=== PATIENT | male | born 1970 | race Caucasian/White ===

== ENCOUNTER 2017-12-06 01:03 | Emergency (ER) | payer OTHER ==
[2017-12-06] MEDS ORDERED: Aspirin 81 mg CHEW TAB* 81 MG TAB.CHEW ONE (02:01)
[2017-12-06] MEDS ORDERED: Pantoprazole IV* 40 MG ONE (02:01)
[2017-12-06 04:52] LABS: ABS Basophils 0 10^3/ul (0-0.2); ABS Eosinophils 0.2 10^3/ul (0-0.6); ABS Lymphocytes 2.4 10^3/ul (1.0-4.8); ABS Monocytes 1.1 10^3/ul (0-0.8); ABS Neutrophils 5.3 10^3/ul (1.5-7.7); ABS Nucleated RBC 0 10^3/ul; Eosinophil % 2.3 % (0-6); Hematocrit 42 % (42-52); Hemoglobin 14.4 g/dl (14.0-18.0); Lymphocyte % 26.4 % (25-47); Mean Corpuscular HGB Conc 34 g/dl (31-36); Mean Corpuscular Hemoglobin 28 pg (27-31); Mean Corpuscular Volume 82 fL (80-94); Mean Platelet Volume 8.5 um3 (7.4-10.4); Nucleated Red Blood Cells % 0; Platelet Count 246 10^3/ul (150-450); Red Blood Count 5.12 10^6/ul (4.0-5.4); Red Cell Distribution Width 15 % (10.5-15); White Blood Count 9.1 10^3/ul (3.5-10.8)
[2017-12-06 04:53] LABS: EGFR Non-African American 50.6 (>60)
[2017-12-06 04:55] LABS: INR 0.84 (0.77-1.02)
--- NOTE | 2017-12-06 06:48 | ED ---
Mor Garcia Thomas, scribed for Maureen Drake MD on 12/06/17 at 0444 . HPI Chest Pain - HPI Summary HPI Summary: The patient is a 46 year old male complaining of mid-sternal chest pain that began at 00:45. The pain is rated 3/10. The pain did not radiate. He took ASA 81 x 3 prior to arrival. He took antacids as well to no relief of pain. The patient also complains of numbness and tingling to his left arm. The patient denies nausea, vomiting, diaphoresis, and shortness of breath. Past medical history includes HLD. - History of Current Complaint Chief Complaint: EDChestPainROMI Time Seen by Provider: 12/06/17 01:44 Hx Obtained From: Patient Onset/Duration: Started Hours Ago, Still Present Timing: Constant Current Severity: Moderate Pain Intensity: 6 Pain Scale Used: 0-10 Numeric Chest Pain Location: Discrete at: - mid sternal Alleviating Factor(s): Nothing Associated Signs and Symptoms: Positive: Negative - nausea, vomiting, diaphoresis, shortness of breath, Chest Pain, Other: - Numbness, tingling - Allergy/Home Medications Allergies/Adverse Reactions: Allergies Allergy/AdvReac Type Severity Reaction Status Date / Time iohexol Allergy Hives Verified 12/06/17 01:42 peaches, apricot, cherries Allergy Airway Uncoded 12/06/17 01:42 Obstruction PMH/Surg Hx/FS Hx/Imm Hx Endocrine/Hematology History: Denies: Hx Anticoagulant Therapy, Hx Diabetes, Hx Thyroid Disease Cardiovascular History: Reports: Hx Hypercholesterolemia Denies: Hx Hypertension, Hx Pacemaker/ICD Respiratory History: Denies: Hx Asthma, Hx Chronic Obstructive Pulmonary Disease (COPD) History: Denies: Hx Renal Disease Sensory History: Denies: Hx Hearing Aid Neurological History: Denies: Hx Dementia, Hx Seizures Psychiatric History: Denies: Hx Panic Disorder, Hx Substance Abuse - Surgical History Surgery Procedure, Year, and Place: testicular tortion,vasectomy, dental surgery - Immunization History Date of Tetanus Vaccine: unk Date of Influenza Vaccine: none Infectious Disease History: No Infectious Disease History: Denies: Hx Hepatitis, Hx Human Immunodeficiency Virus (HIV), Traveled Outside the [place] in Last 30 Days - Family History Known Family History: Negative: Blood Disorder - Social History Alcohol Use: Rare Substance Use Type: Reports: None Smoking Status (MU): Never Smoked Tobacco Review of Systems Negative: Skin Diaphoresis Positive: Cough. Negative: Shortness Of Breath Negative: Vomiting, Nausea Neurological: Other - Tingling Positive: Numbness All Other Systems Reviewed And Are Negative: Yes Physical Exam - Summary Physical Exam Summary: VITAL SIGNS: Reviewed. GENERAL: Patient is a well-developed and nourished male who is lying comfortable in the stretcher. Patient is not in any acute respiratory distress. HEAD AND FACE: No signs of trauma. No ecchymosis, hematomas or skull depressions. No sinus tenderness. EYES: PERRLA, EOMI x 2, No injected conjunctiva, no nystagmus. EARS: Hearing grossly intact. Ear canals and tympanic membranes are within normal limits. MOUTH: Oropharynx within normal limits. NECK: Supple, trachea is midline, no adenopathy, no JVD, no carotid bruit, no c- spine tenderness, neck with full ROM. CHEST: Symmetric, no tenderness at palpation LUNGS: Clear to auscultation bilaterally. No wheezing or crackles. CVS: Regular rate and rhythm, S1 and S2 present, no murmurs or gallops appreciated. ABDOMEN: Soft, non-tender. No signs of distention. No rebound no guarding, and no masses palpated. Bowel sounds are normal. EXTREMITIES: FROM in all major joints, no edema, no cyanosis or clubbing. NEURO: Alert and oriented x 3. No acute neurological deficits. Speech is normal and follows commands. SKIN: Dry and warm Triage Information Reviewed: Yes Vital Signs On Initial Exam: Initial Vitals Pulse Resp BP Pulse Ox 83 27 126/72 95 12/06/17 00:45 12/06/17 00:45 12/06/17 00:45 12/06/17 00:45 Vital Signs Reviewed: Yes Diagnostics - Vital Signs Vital Signs Temp Pulse Resp BP Pulse Ox 12/06/17 04:00 77 15 94 12/06/17 03:45 80 19 104/61 94 12/06/17 03:15 75 16 107/58 95 12/06/17 03:00 85 17 93 12/06/17 02:45 88 19 114/68 94 12/06/17 02:15 92 24 119/73 94 12/06/17 02:06 88 15 96 12/06/17 01:45 79 16 126/72 98 04/19/18 01:44 81 17 98 12/06/17 01:05 97.7 F 86 18 134/79 96 12/06/17 00:45 83 27 126/72 95 - Laboratory Result Diagrams: 12/06/17 01:50 12/06/17 01:50 Lab Statement: Any lab studies that have been ordered have been reviewed, and results considered in the medical decision making process. - EKG 01:01 Cardiac Rate: NL EKG Rhythm: Sinus Rhythm - at 823 BPM EKG Interpretation: Nonspecific ST T-wave changes. Re-Evaluation - Re-Evaluation First Eval Re-Evaluation Time: 06:42 Comment: He is chest pain free at this time. Chest Pain Course/Dx - Course Assessment/Plan: The patient is a 46 year old male complaining of mid-sternal chest pain and numbness to his left arm. Bloodwork and EKG were obtained. The patient will be discharged home to follow up with primary care in 1-2 days. The patient is diagnosis with atypical chest pain. I recommended a stress test as an outpatient as soon as possible. - Diagnoses Provider Diagnoses: Atypical chest pain Discharge - Sign-Out/Discharge Documenting (check all that apply): Discharge - Discharge Plan Condition: Stable Disposition: HOME Patient Education Materials: Chest Pain (ED) Referrals: Jo Castillo MD [Primary Care Provider] - 2 Weeks Additional Instructions: Follow up with your primary care physician in one to two days. I recommend a stress test as an outpatient as soon as possible. Return to the emergency department for any new or worsening symptoms. The documentation as recorded by the Mor story Thomas accurately reflects the service I personally performed and the decisions made by , Maureen Drake MD.
[2017-12-06 06:57] VITALS: BP 121/66
--- NOTE | 2017-12-06 08:04 | RAD ---
HISTORY: Midsternal chest pain COMPARISONS: October 15, 2011 VIEWS: 1: frontal portable view of the chest at 2:55 AM FINDINGS: LINES AND TUBES: None. CARDIOMEDIASTINAL SILHOUETTE: The cardiomediastinal silhouette is normal for portable technique. PLEURA: The costophrenic angles are sharp. No pleural abnormalities are noted. LUNG PARENCHYMA: The lungs are clear. ABDOMEN: The upper abdomen is clear. There is no subphrenic gas. BONES AND SOFT TISSUES: No bone or soft tissue abnormalities are noted. IMPRESSION: NO ACTIVE CARDIOPULMONARY DISEASE.
== END 2017-12-06 06:58 | disposition home or self-care (01) ==
LOC: ED 01:03
DX: R07.89 Other chest pain (principal)
CPT/HCPCS: 36415; 71045; 80053; 82150; 82550; 83690; 83735; 84484; 85025; 85610; 85730; 99283; A9270-GY

== ENCOUNTER → 2019-03-20 | Day surgery (SDC) | payer OTHER ==
[~2019-03-20] MED LIST: ACETAMINOPHEN PO PRN; ASPIRIN 81 MG PO SCH; Aspirin 81 mg CHEW TAB* 81 MG TAB.CHEW ONE; Atorvastatin* 80 MG TAB PO SCH; Azelastine 0.15% NASAL(NF) 30 ML BTL BOTH NARES PRN; BUTALB PO PRN; CAFFEINE PO PRN; CHOLECALCIFEROL PO SCH; Cetirizine* 10 MG TAB PO PRN; Clobetasol 0.05% OINT* 30 GM TUBE TOPICAL PRN; Diazepam TAB(*) 5 MG ONE; Fluticasone NASAL SPRAY 50MCG* 16 gm SPRAY BTL BOTH NARES SCH; Heparin 2 UNITS/ML IVPREMIX* 3,000 UNIT/1,500 ML BAG IV ONE; Heparin(*) 1000 UNIT/ML 10 ML VIAL CATH LAB IV ONE; IBUPROFEN PO PRN; Iohexol 350 (CONTRAST) 200 ML MDV IV ONE; Ketoconazole 2 % CREAM (NF) 30 GM TUBE TOPICAL SCH; Lidocaine 1% INJ* 10 MG/ML 30 ML SDV ONE; MAGNESIUM OXIDE 400 MG PO SCH; Metoprolol Succinate XL TAB* 25 MG PO SCH; Midazolam* 1 MG/ML 5 ML VIAL (5 MG) ONE; Montelukast Sodium TAB* 10 MG PO SCH; NS 0.9% 1000 ML** 1,000 ML IV SCH; Nitroglycerin TAB 0.4 MG* 0.4 MG TAB SL PRN; OMEGA-3 FATTY ACIDS (NF) 1,000 MG CAP PO SCH; Ranitidine TAB (NF) 150 MG TAB PO SCH; Riboflavin (B2) (NF) 100 MG TAB PO SCH; VERAPAMIL 2.5 MG/ML 2 ML VIAL ** 5 mg/2 ml ONE; [UNRECOGNIZED DRUG - OTHER] PO PRN; diPHENhydraMINE PO* 25 MG ONE; fentaNYL* 50 MCG/ML 2 ML VIAL (100 MCG VIAL) ONE; nitroGLYCERIN DRIP* 25,000 MCG/250 ML BTL ONE
[2019-03-20 11:44] LABS: ABS Lymphocytes 0.6 10^3/ul (1.0-4.8); ABS Monocytes 0.1 10^3/ul (0-0.8); ABS Neutrophils 7.4 10^3/ul (1.5-7.7); Eosinophil % 0.1 %; Hematocrit 46 % (42-52); Hemoglobin 15.8 g/dL (14.0-18.0); Lymphocyte % 7.7 %; Mean Corpuscular HGB Conc 35 g/dL (31-36); Mean Corpuscular Hemoglobin 29 pg (27-31); Mean Corpuscular Volume 83 fL (80-94); Mean Platelet Volume 8.4 fL (7.4-10.4); Platelet Count 266 10^3/uL (150-450); Red Blood Count 5.53 10^6 /uL (4.18-5.48); Red Cell Distribution Width 14 % (10-15); White Blood Count 8.1 10^3/uL (3.5-10.8)
[2019-03-20 11:54] LABS: BUN/Creatinine Ratio 23.5 (8-20); EGFR African American 94.7 (>60); EGFR Non-African American 78.3 (>60)
[2019-03-20 12:02] LABS: Potassium 4.7 mmol/L (3.5-5.0)
[2019-03-20 12:06] LABS: Activated Partial Thrombo Time 33.7 seconds (26.0-38.0); INR 0.94 (0.82-1.09)
--- NOTE | 2019-03-20 14:15 | CATH ---
"*[facility]* [place] [address] Main: [phone] [email or web address] Cardiac Catheterization Patient: Cain Vázquez : 1970 Study Date: 03/20/2019 Age: 48 Gender: M HR: Height: 67 in /170.2 cm BSA: 2.07 m^2 Weight: 194.9 lb /88.6 kg BMI: 30.6 kg/m^2 Hospitality Internship: Mraek Costa MD Ordering Physician: Marek Costa MD Referring Physician: Lexa Rubalcava MD - Left coronary angiography. - Right coronary angiography. Summary: Ramus intermedius: Ostial lesion: There is a 35% stenosis. Recommendations: No significant coronary artery disease seen. This information was shared with Dr. Rubalcava, referring cinnamon grinder.He will be seeing the patient in follow up for on going cardiac management. The patient will be seen next week for a wound checvk by Dr. Singletary. History: Stable angina. Functional status: CCS class I (angina only with strenuous or prolonged activity). Risk factors: Hypertension. Dyslipidemia. Medications: The patient received antianginal therapy in the last two weeks, including: beta blockers and calcium channel blockers. Labs, prior tests, procedures, and surgery: Stress myocardial perfusion imaging. Abnormal. Low risk of ischemia. Blood tests: International normalized ratio (INR) . Serum potassium (K) of 4.7 mEq/l. Serum sodium (Na) of 134 mEq/l. Serum creatinine (current admission) of 1.02 mg/dl. Blood urea nitrogen of 24 mg/dl. Glucose of 162 mg/dl. Platelet count of 266 th/ul. White blood cell count (WBC) of 0.01 th/ul. Red blood cell count (RBC) of 5530 th/ul. Hematocrit of 46 %. Hemoglobin (pre-procedure) of 15.8 g/dl. Study data: Study status: Cardiac cath: elective. Location: Catheterization laboratory. Consent: The risks, benefits, and alternatives to the procedure were explained to the patient and/or their healthcare teleservices representative and written informed consent was obtained. All available pre-procedure labs were reviewed. Height: 170.2 cm. 67 in. Weight: 88.6 kg. 194.9 lb. Body surface area: 2.07 m^2. Body mass index: 30.6 kg/m^2. Procedure: 1. Initial setup. The patient was brought to the laboratory. Surface ECG leads, blood pressure measurements, and pulse oximetric signals were monitored. A baseline seven lead ECG was recorded. A time out was observed per protocol. 2. Skin preparation. The planned puncture sites were prepped and draped in the usual sterile manner. 3. Local anesthesia. 1% lidocaine was administered. 4. Supplemental oxygen. Oxygen, 2 L/min was administered throughout the procedure. 5. Local anesthesia. 1% lidocaine (2 ml) was administered. 6. Right radial artery access. A 6F [place] Slender sheath was advanced into the vessel. 7. Selective left coronary angiography. A 5F TIG 4.0 catheter was advanced into the left coronary vessel ostium under fluoroscopic guidance. Contrast was injected. Images were obtained in multiple projections. 8. Selective right coronary angiography. A 5F FR 4.0 Impulse catheter was advanced into the right coronary vessel ostium under fluoroscopic guidance. Contrast was injected. Images were obtained in multiple projections. 9. Local anesthesia. 1% lidocaine (1 ml) was administered. 10. Right radial artery hemostasis. Vessel closure was achieved with a Regular Vasc Band device. Hemostasis was successfully obtained. Study completion: Minimal estimated blood loss. All catheters inserted during the procedure were removed. There were no apparent complications. Administered medications: Aspirin, 81mg, PO. (Radial) Verapamil, 3mg, intra-arterially. (Radial) Heparin, 4,000units, intra-arterially. VERSED (Midazolam), 0.5mg, IV. Fentanyl, 12.5mcg, IV. (Radial) Nitroglycerin, for a total dose of 600mcg, intra-arterially. NaCl 0.9% , infusion , at a rate of 100 ml/hr. NaCl 0.9% , 250 ml , bolus. NaCl 0.9% , infusion , at a rate of 150 ml/hr. Contrast: Omnipaque 350 60 ml (total dose). Omnipaque 350 140 ml (wasted). Radiation: Fluoroscopy dose: 95.6 cGy. Discharge: The patient tolerated the procedure well and was discharged from the lab in stable condition. Findings Coronary arteries: The coronary circulation is left dominant. The left main bifurcates normally into the LAD and circumflex. The left anterior descending gives rise to 2 diagonals. The first diagonal branch parallels the left anterior descending coronary and bifurcates suppyling the proximal to mid anterolateral wall. The left circumflex gives rise to 3 obtuse marginals, 1 posterolateral, and the posterior descending artery. The right coronary gives rise to 3 RV marginals. Left main: Normal, no significant disease. LAD: Normal, no significant disease. Ramus intermedius: Ostial lesion: There is a 35% stenosis. Left circumflex: Normal, no sigificant disease. Left dominant circulation. Right coronary: Normal, no significant disease. Hemodynamics: + + + |Stage description |Condition 1 -| + + + |Arterial pressure s/d (m)|106/67 (84) | + + + Prepared and electronically signed by Marek Costa MD 03/20/2019 14:15"
[2019-03-20 15:29] VITALS: BP 108/68
== END | disposition home or self-care (01) ==
LOC: CHICATH 10:28
PROVIDERS: ATTEND Internal Medicine Cardiovascular Disease
DX: I25.119 Atherosclerotic heart disease of native coronary artery with unspecified angina pectoris (principal); E78.00 Pure hypercholesterolemia, unspecified; Z73.3 Stress, not elsewhere classified; G47.33 Obstructive sleep apnea (adult) (pediatric); G43.909 Migraine, unspecified, not intractable, without status migrainosus; E78.5 Hyperlipidemia, unspecified; R09.89 Other specified symptoms and signs involving the circulatory and respiratory systems; J30.2 Other seasonal allergic rhinitis; K21.9 Gastro-esophageal reflux disease without esophagitis; I36.1 Nonrheumatic tricuspid (valve) insufficiency
CPT/HCPCS: 36415; 80048; 85025; 85610; 85730; 86850; 86900; 86901; 93454; A9270-GY; J1644; J2250; J3010

== ENCOUNTER 2019-10-28 14:07 | Emergency (ER) | payer OTHER ==
--- OUTSIDE RECORDS SUMMARY | 2019-10-28 14:13 | XMS REPORT | Continuity of Care Document ---
:1970 External Reference #:[id number] Author Name Carlos Dickerson N.P. (transmitted by agent of provider Pippa Kelly) Address [address], [place] [address] Care Team Providers Name Role Phone Daphnie Khan MD - Internal Care Team Information Freelance Operator Medicine Regi Gonzalez MD - Family Care Team Information Freelance Operator Medicine Ann Kaiser M.D. - Single Care Team Information Freelance Operator [phone] Specialty Addy Lee LCSW - Clinical Care Team Information Freelance Operator [phone] Problems Active Problems Provider Date Coronary atherosclerosis Jo Castillo M.D. Onset: 01/25/2019 Hyperlipidemia Jo Castillo M.D. Onset: 08/02/2010 Strain of rotator cuff capsule Андрей Mccarty M.D. Onset: 01/25/2015 Disorder of bursa of shoulder region Андрей Mccarty M.D. Onset: 02/09/2015 Adhesive capsulitis of shoulder Андрей Mccarty M.D. Onset: 06/07/2015 Seasonal allergic rhinitis Shabbir Pozo NP Onset: 12/11/2016 Chronic intractable migraine without Reinaldo Meyer M.D. Onset: 11/05/2017 aura Angina pectoris Neftali Singletary MD, [facility], Onset: 03/26/2019 [facility] Social History Type Date Description Comments Sex Unknown Tobacco Use Start: Unknown Never Smoked Cigarettes ETOH Use Currently consumes 1-2 drinks/week alcohol Tobacco Use Start: Unknown Patient has never smoked Recreational Drug Use Denies Drug Use Smoking Status Reviewed: 09/04/19 Patient has never smoked Exercise Type/Frequency Exercises sporadically Allergies, Adverse Reactions, Alerts Active Allergies Reaction Severity Comments Date Contrast Dye 01/06/2016 Clindamycin Mild n/v 12/11/2016 Dairy 03/21/2018 Nitro-Dur 2018 Nitrates: headaches, migr Moderate 04/03/2019 Medications Active Medications SIG Qnty Indications Ordering Provider Date Pantoprazole Sodium 1 by mouth every 30tabs K21.9 Lexa Gallardo 04/03/2019 day Jacob Rubalcava 40mg Tablets Amlodipine Besylate 1 by mouth every 30tabs I20.8 Lexa Gallardo 04/03/2019 day Jacob Rubalcava 2.5mg Tablets Nitrostat dissolve 1 30tabs Lexa Gallardo 08/07/2018 0.4mg tablet under the Jacob Rubalcava Tablets Sub tongue every 5 minutes up to 3 doses as needed replace every 12 months Butalbital/Acetamino take 1-2 every 8 14caps G43.719 Carlos Dickerson, 09/2017 phen/Caffeine hours for N.P. migraine 50-300-40mg Capsules headaches Riboflavin 4 by mouth each 120caps G43.719 Reinaldo Meyer, 11/05/2017 100mg day M.D. Capsules Zyrtec Allergy 1 by mouth every 30tabs J30.2 Shabbir Pozo NP 12/11/2016 10mg day for the next Tablets 3-4 weeks, then as needed Montelukast Sodium Take 1 Tablet 90tabs J30.2 Jo Castillo, 12/11/2016 Daily M.DMari 10mg Tablets Atorvastatin Calcium take 2 tablets 180tabs E78.5 Lexa Gallardo 04/14/2016 by mouth every Jacob Rubalcava 40mg Tablets day Fish Oil 2 po qd Jo Castillo, 03/06/2011 1000mg M.D. Capsules Vitamin D-3 2 po qd Jo Castillo, 03/06/2011 1000Unit M.D. Tablets Aspirin Childrens 1 tab daily Jo Castillo, 03/06/2011 M.D. 81mg Chewtabs Advil prn 100caps Unknown 200mg Capsules Clobetasol apply once a day 30units Unknown Propionate as needed 0.05% Gel Ketoconazole topical, as Lesly Resendiz NP 2% needed Shampoo Magnesium 1 by mouth once Unknown 400mg a day Capsules Azelastine HCL spray two sprays Unknown (Nasal) in each nostril ? Solution twice a day as needed Fluticasone prn as needed Unknown Zantac 150 Maximum take one pill as Unknown Strength needed 150mg Tablets Metoprolol Succinate 1/2 by mouth Unknown ER every day 25mg Tablets ER 24HR Medications Administered in Office Medication SIG Qnty Indications Ordering Provider Date Depomedrol 80MG Андрей Mccarty M.D. 06/28/2015 Injection Depomedrol 80MG Андрей Mccarty M.D. 02/09/2015 Injection Immunizations CPT Code Status Date Vaccine Lot # [id number] Given 06/27/2019 Influenza Virus Vaccine, Quadrivalent (Cciiv4), [id number] Derived From Cell 40750 Given 05/30/2018 Influenza Virus Vaccine, Quadrivalent, Split, [id number] Preservative Free 80760 Given 12/18/2014 Measles Mumps And Rubella MMR [id number] Given 01/30/2013 Tdap - Tetanus/Diptheria/Acellular Pertussis [id number] Given 06/08/2011 Influenza Virus 3Yrs & Over [id number] Vital Signs Date Vital Result Comment 09/04/2019 2:10pm Height 66.5 inches 5'6.50" Weight 195.00 lb Heart Rate 79 /min BP Systolic 110 mmHg BP Diastolic 90 mmHg BMI (Body Mass Index) 31.0 kg/m2 08/27/2019 4:34pm Height 66.5 inches 5'6.50" Weight 197.12 lb Heart Rate 94 /min BP Systolic 110 mmHg BP Diastolic 56 mmHg Body Temperature 96.8 F O2 % BldC Oximetry 95 % BMI (Body Mass Index) 31.3 kg/m2 Results Test Acquired Date Facility Test Result H/L Range Note Lipid Panel - 06/24/2019 [facility] Creatine 65 U/L Normal 10- [address] Kinase(CK) [place] [address] [phone] Comp Metabolic 06/24/2019 [facility] Sodium 137 mmol/L Normal 135-[address] [place] [address] [phone] Potassium 4.5 mmol/L Normal 3.5-5.0 Chloride 103 mmol/L Normal 101-111 Co2 Carbon Dioxide 30 mmol/L Normal 22-32 Anion Gap 4 mmol/L Normal 2-11 Glucose 103 mg/dL High 70-100 Blood Urea Nitrogen 22 mg/dL Normal 6-24 Creatinine 1.10 mg/dL Normal 0.67-1.17 BUN/Creatinine Ratio 20.0 Normal 8-20 Calcium 9.7 mg/dL Normal 8.6-10.3 Total Protein 7.1 g/dL Normal 6.4-8.9 Albumin 4.5 g/dL Normal 3.2-5.2 Globulin 2.6 g/dL Normal 2-4 Albumin/Globulin Ratio 1.7 Normal 1-3 Total Bilirubin 0.90 mg/dL Normal 0.2-1.0 Alkaline Phosphatase 105 U/L High 34-104 Alt 41 U/L Normal 7-52 Ast 16 U/L Normal 13-39 Egfr Non- 71.8 >60 Egfr 86.8 >60 1 Lipid Profile 06/24/2019 [facility] Triglycerides 167 mg/dL 2 (Trig/Chol/HDL) [address] [place] [address] [phone] Cholesterol 178 mg/dL 3 HDL Cholesterol 42.3 mg/dL 4 LDL Cholesterol 102 mg/dL 5 CBC Auto 03/20/2019 [facility] White Blood 8.1 10^3/uL Normal 3.5-10.[address] [place] [address] [phone] Red Blood Count 5.53 10^6/uL High 4.18-5.48 Hemoglobin 15.8 g/dL Normal 14.0-18.0 Hematocrit 46 % Normal 42-52 Mean Corpuscular Volume 83 fL Normal 80-94 Mean Corpuscular Hemoglobin 29 pg Normal 27-31 Mean Corpuscular HGB Conc 35 g/dL Normal 31-36 Red Cell Distribution Width 14 % Normal 10-15 Platelet Count 266 10^3/uL Normal 150-450 Mean Platelet Volume 8.4 fL Normal 7.4-10.4 Abs Neutrophils 7.4 10^3/uL Normal 1.5-7.7 Abs Lymphocytes 0.6 10^3/uL Low 1.0-4.8 Abs Monocytes 0.1 10^3/uL Normal 0-0.8 Abs Eosinophils 0.0 10^3/uL Normal 0-0.6 Abs Basophils 0.0 10^3/uL Normal 0-0.2 Abs Nucleated RBC 0.0 10^3/uL Granulocyte % 90.8 % Lymphocyte % 7.7 % Monocyte % 1.3 % Eosinophil % 0.1 % Basophil % 0.1 % Nucleated Red Blood Cells % 0.0 Basic Metabolic 03/20/2019 [facility] Sodium 134 mmol/L Low 135-145 Panel [address] [place], [place] [id number] [phone] Chloride 104 mmol/L Normal 101-111 Co2 Carbon Dioxide 22 mmol/L Normal 22-32 Glucose 162 mg/dL High 70-100 Blood Urea Nitrogen 24 mg/dL Normal 6-24 Creatinine 1.02 mg/dL Normal 0.67-1.17 BUN/Creatinine Ratio 23.5 High 8-20 Calcium 10.0 mg/dL Normal 8.6-10.3 Egfr Non- 78.3 >60 Egfr 94.7 >60 7 Potassium 4.7 mmol/L Normal 3.5-5.0 Anion Gap 8 mmol/L Normal 2-11 Inr/Protime 03/20/2019 [facility] Inr 0.94 Normal 0.82-1.09 8 [address] [place] [address] [phone] Laboratory test 03/20/2019 [facility] Partial 33.7 Normal 26.0 -38.0 [address] [place] [address] [place] [address] Time PTT [phone] Type & Screen 03/20/2019 [facility] Patient O Positive [address] [place] [address] [place] [address] [phone] Antibody Screen NEGATIVE 1 Because ethnic data is not always readily available, this report includes an eGFR for both -Americans and non- Americans. The National Kidney Disease Education Program (NKDEP) does not endorse the use of the MDRD equation for patients that are not between the ages of 18 and 70, are , have extremes of body size, muscle mass, or nutritional status, or are non- or non-. According to the National Kidney Foundation, irrespective of diagnosis, the stage of the disease is based on the level of kidney function: Stage Description GFR(mL/min/1.73 m(2)) 1 Kidney damage with normal or decreased GFR 90 2 Kidney damage with mild decrease in GFR 60-89 3 Moderate decrease in GFR 30-59 4 Severe decrease in GFR 15-29 5 Kidney failure <15 (or dialysis) 2 Desirable: <150 Borderline High: 150-199 High: 200-499 Very High: >500 3 Desirable: <200 Borderline High: 200-239 High: >239 4 Low: <40 Desirable: 40-60 High: >60 5 Desirable: <100 Near Optimal: 100-129 Borderline High: 130-159 High: 160-189 Very High: >189 6 CALL IF CRITICAL [id number] DR CSOTA 7 Because ethnic data is not always readily available, this report includes an eGFR for both -Americans and non- Americans. The National Kidney Disease Education Program (NKDEP) does not endorse the use of the MDRD equation for patients that are not between the ages of 18 and 70, are , have extremes of body size, muscle mass, or nutritional status, or are non- or non-. According to the National Kidney Foundation, irrespective of diagnosis, the stage of the disease is based on the level of kidney function: Stage Description GFR(mL/min/1.73 m(2)) 1 Kidney damage with normal or decreased GFR 90 2 Kidney damage with mild decrease in GFR 60-89 3 Moderate decrease in GFR 30-59 4 Severe decrease in GFR 15-29 5 Kidney failure <15 (or dialysis) 8 Standard intensity warfarin therapeutic range: 2.0-3.0 High intensity warfarin therapeutic range: 2.5-3.5 9 [address] IF CRITICAL [id number] DR COSTA Procedures Date Code Description Status 04/03/2019 76709 EKG Tracing & Interpretation Completed 03/20/2019 29846 Cath PLMT&NJX L Ventriculog Img S&I Completed Medical Devices Description No Information Available Encounters Type Date Location Provider Dx Diagnosis Office Visit 08/27/2019 [facility] Michelle Chau, M75.82 Other shoulder 4:30p Medicine - Shawna James, FACP lesions, left shoulder M22.2x2 Patellofemoral disorders, left knee Office Visit 06/27/2019 3:40p [facility] Internal Jo Z00.00 Encntr for Medicine - Shawna Castillo M.D. general adult medical exam w/o abnormal findings R07.9 Chest pain, unspecified R19.7 Diarrhea, unspecified F43.0 Acute stress reaction Z23 Encounter for immunization Office Visit 06/02/2019 Larry Gonzalez G43.719 Chronic migraine 3:30p Neurologic Tuan N.Leanne w/o aura, [facility] intractable, w/o stat migr Office Visit 05/06/2019 [place] Dinah Sharma, E78.00 Pure 1:30p Cardiology Of N.P. hypercholesterolem [facility] ia, unspecified I25.10 Athscl heart disease of [place] coronary artery w/o ang pctrs R07.9 Chest pain, unspecified I20.8 Other forms of angina pectoris Office Visit 04/03/2019 2:00p [facility] Lexa Gallardo I20.8 Other forms of Of [facility] Jacob Rubalcava angina pectoris E78.00 Pure hypercholesterolemia, unspecified K21.9 Gastro-esophageal reflux disease without esophagitis I25.10 Athscl heart disease of [place] coronary artery w/o ang pctrs Office Visit 03/26/2019 3:00p [facility] Neftali Crump I20.8 Other forms of Of [facility] AT [facility] MD Gemini, angina pectoris [facility] Assessments Date Code Description Provider 09/04/2019 G43.719 Chronic migraine without aura, Carlos Dickerson N.Leanne intractable, without status m 08/27/2019 M75.82 Other shoulder lesions, left Michelle Chau M.D., FACP shoulder 08/27/2019 M22.2x2 Patellofemoral disorders, left knee Michelle Chau M.D., FACP 06/27/2019 Z00.00 Encounter for general adult medical Jo Castillo M.D. examination without abnormal findings 06/27/2019 R07.9 Chest pain, unspecified Jo Castillo M.D. 06/27/2019 R19.7 Diarrhea, unspecified Jo Castillo M.D. 06/27/2019 F43.0 Acute stress reaction Jo Castillo M.D. 06/27/2019 Z23 Encounter for immunization Jo Castillo M.D. 06/02/2019 G43.719 Chronic migraine without aura, Carlos Dickerson N.Dwain. intractable, without status m 05/06/2019 E78.00 Pure hypercholesterolemia, Dianh Sharma, N.P. unspecified 05/06/2019 I25.10 Coronary atherosclerosis Dinah SMari Sharma, N.P. 05/06/2019 R07.9 Chest pain, unspecified Dinah S. Zachary, N.P. 05/06/2019 I20.8 Other forms of angina pectoris Dinah Sharma, N.P. 04/03/2019 I20.8 Other forms of angina pectoris Lexa Rubalcava M.D. 04/03/2019 E78.00 Pure hypercholesterolemia, Lexa Rubalcava M.D. unspecified 04/03/2019 K21.9 Gastro-esophageal reflux disease Lexa Rubalcava M.D. without esophagitis 04/03/2019 I25.10 Coronary atherosclerosis Lexa Rubalcava M.D. 03/26/2019 I20.8 Other forms of angina pectoris Neftali Singletary MD, [facility], [facility] 03/20/2019 I20.8 Other forms of angina pectoris Marek Costa M.D., [facility], [facility] Plan of Treatment Future Appointment(s):01/22/2020 2:15 pm - Reinaldo Meyer M.D. at [facility]09/19/2019 1:45 pm - Addy Lee LCSW at [facility] Internal Medicine - [facility]09/15/2019 2:30 pm - Mike Ambrosio MD at [facility] at [facility]/16/2019 1:40 pm - Lexa Rubalcava M.D. at [facility]/10/2020 3:00 pm - Jo Castillo M.D. at [facility] Internal Medicine - [facility]09/04/2019 - Carlos Dickerson N.P.G43.719 Chronic migraine without aura, intractable, without status mFollow up:4 months Functional Status Description No Information Available Mental Status Description No Information Available Referrals Refer to Reason for Referral Status Appt Date Addy Lee, BETH Lee or Julita Barrera, first available Sent [address], [place] [address] [phone] Ann Kaiser M.D. Closed 07/23/[address] [place] [address] [phone]
--- OUTSIDE RECORDS SUMMARY | 2019-10-28 14:13 | XMS REPORT | Continuity of Care Document ---
:1970 External Reference #:[id number] Author Name Mike Ambrosio MD (transmitted by agent of provider Loren Wright) Address [address] [place] [id number] Care Team Providers Name Role Phone Daphnie Khan MD - Internal Care Team Information Assistant Administrator Medicine Regi Gonzalez MD - Family Care Team Information Assistant Administrator [phone] Medicine Ann Kaiser M.D. - Single Care Team Information Assistant Administrator Specialty Addy Lee LCSW - Clinical Care Team Information Assistant Administrator [phone] Problems Active Problems Provider Date Coronary atherosclerosis [...] 11/05/2017 aura Angina pectoris Neftali Singletary MD, [facility], Onset: 03/26/2019 [facility] Social History Type Date Description Comments Sex Unknown Tobacco Use Start: Unknown Never Smoked Cigarettes ETOH Use Currently consumes 1-2 drinks/week alcohol Tobacco Use Start: Unknown Patient has never smoked Recreational Drug Use Denies Drug Use Smoking Status Reviewed: 10/20/19 Patient has never smoked Exercise Type/Frequency Exercises sporadically Allergies, Adverse Reactions, Alerts Active Allergies Reaction Severity Comments Date Contrast Dye 01/06/2016 Clindamycin Mild n/v 12/11/2016 Dairy 03/21/2018 Nitro-Dur 2019 Nitrates: headaches, migr Moderate 04/03/2019 Medications Active Medications SIG Qnty Indications Ordering Provider Date Butalbital/Acetamino take 1 every 8 14tabs G43.719 Carlos Dickerson, 2019 phen/Caffeine hours as needed N.P. for migraine do 50-325-40mg Tablets not drive after taking Pantoprazole Sodium 1 by mouth every 30tabs K21.9 Dinah Sharma, 2018 day N.P. 40mg Tablets Amlodipine Besylate 1 by mouth every 30tabs I20.8 Lexa Gallardo 04/03/2019 day Jacob Rubalcava 2.5mg Tablets Nitrostat dissolve 1 30tabs Lexa Gallardo 08/07/2018 0.4mg tablet under the Jacob Rubalcava Tablets Sub tongue every 5 minutes up to 3 doses as needed replace every 12 months Riboflavin 4 by mouth each 120caps G43.719 Reinaldo Meyer, 11/05/2017 100mg day M.D. Capsules Zyrtec Allergy 1 by mouth every 30tabs J30.2 Shabbir Pozo NP 12/11/2016 10mg day Tablets Montelukast Sodium take 1 tablet 90tabs J30.2 Jo Castillo, 12/11/2016 daily M.D. 10mg Tablets Atorvastatin Calcium Take 1 Tablet 90tabs E78.5 Jo Castillo, 2015 Daily M.D. 40mg Tablets Fish Oil 2 po qd Jo Castillo, [...] as needed Fluticasone prn as needed Unknown Metoprolol Succinate 1/2 by mouth Unknown ER every day 25mg Tablets ER 24HR Medications Administered in Office Medication SIG Qnty Indications Ordering Provider Date Depomedrol 40MG ROBYN Mnotoya 09/15/2019 Injection Depomedrol 80MG Андрей Mccarty M.D. 06/28/2015 Injection Depomedrol 80MG Андрей Mccarty M.D. 02/09/2015 Injection Immunizations CPT Code Status Date Vaccine Lot # [id number] Given 06/27/2019 Influenza Virus Vaccine, Quadrivalent (Cciiv4), [id number] Derived From Cell 80818 Given 05/30/2018 Influenza Virus Vaccine, Quadrivalent, Split, [id number] Preservative Free [id number] Given 12/18/2014 Measles Mumps And Rubella MMR [id number] 08992 Given 01/30/2013 Tdap - Tetanus/Diptheria/Acellular Pertussis [id number] 28851 Given 06/08/2011 Influenza Virus 3Yrs & Over [id number] Vital Signs Date Vital Result Comment 10/20/2019 2:32pm Height 66.5 inches 5'6.50" Weight 190.00 lb Heart Rate 76 /min BP Systolic Standing 128 mmHg BP Diastolic Standing 72 mmHg Respiratory Rate 13 /min Body Temperature 98.4 F Pain Level 1 increases with movement BMI (Body Mass Index) 30.2 kg/m2 09/16/2019 1:28pm Height 66.5 inches 5'6.50" Weight 189.25 lb without shoes Heart Rate 84 /min left radial reqular BP Systolic Sitting 128 mmHg ule reg cuff BP Diastolic Sitting 84 mmHg ule reg cuff BP Systolic Standing 130 mmHg ule reg cuff BP Diastolic Standing 86 mmHg ule reg cuff BMI (Body Mass Index) 30.1 kg/m2 Ejection Fraction 55-60% 08/01/2018 Echocardiogram Results Test Acquired Date Facility Test Result H/L Range Note Xray 09/15/2019 [facility] Shoulder Left 2+ VWS <pending> [address] [place] [address] [phone] Knee 3 Views LT <pending> Lipid Panel - 06/24/2019 [facility] Creatine 65 U/L Normal 10- [address] Kinase(CK) [place], [place] [address] [phone] Comp Metabolic 06/24/2019 [facility] Sodium 137 Normal 135- [address] mmol/[place] [address] [phone] Potassium 4.5 mmol/L Normal 3.5-5.0 Chloride 103 [...] Egfr 86.8 >60 1 Lipid Profile 06/24/2019 [facility] Triglycerides 167 mg/dL 2 (Trig/Chol/HDL) [address] [place] [address] [phone] Cholesterol 178 mg/dL 3 HDL Cholesterol 42.3 mg/dL 4 LDL Cholesterol 102 mg/dL 5 1 Because ethnic data is not always [...] High: 130-159 High: 160-189 Very High: >189 Procedures Date Code Description Status 09/16/2019 50968 EKG Tracing & Interpretation Completed 09/15/2019 69656 Inject/Drain Joint/Bursa Major W/O US Completed Medical Devices Description No Information Available Encounters Type Date Location Provider Dx Diagnosis Office Visit 09/16/2019 [facility] Lexa Gallardo I20.8 Other forms of 1:40p Jacob Rubalcava angina pectoris E78.5 Hyperlipidemia, unspecified I25.10 Athscl heart disease of [place] coronary artery w/o ang pctrs Office Visit 09/15/2019 2:30p [facility] Mike Arteaga M75.52 Bursitis of at Trisha Ambrosio MD left shoulder M75.82 Other shoulder lesions, left shoulder M25.562 Pain in left knee Office Visit 09/04/2019 Larry Gonzalez G43.719 Chronic migraine 2:00p Neurologic Tuan, N.P. w/o aura, [facility] intractable, w/o stat migr Office Visit 08/27/2019 [facility] Internal Michelle Chau M75.82 Other shoulder 4:30p Medicine - Shawna James, FACP lesions, left shoulder M22.2x2 Patellofemoral disorders, left knee Office Visit 06/27/2019 3:40p [facility] Internal Jo Z00.00 Encntr for Medicine - Shawna Castillo M.D. general adult medical exam w/o abnormal findings R07.9 Chest pain, unspecified R19.7 Diarrhea, unspecified F43.0 Acute stress reaction Z23 Encounter for immunization Office Visit 06/02/2019 Larry Gonzalez G43.719 Chronic migraine 3:30p Neurologic Tuan N.Dwain. w/o aura, [facility] [employer] intractable, w/o stat migr Office Visit 05/06/2019 Trisha Sharma, E78.00 Pure 1:30p Cardiology Of N.P. hypercholesterolem [employer] ia, unspecified I25.10 Athscl heart disease of [place] coronary artery w/o ang pctrs R07.9 Chest pain, unspecified I20.8 Other forms of angina pectoris Assessments Date Code Description Provider 10/20/2019 M75.52 Bursitis of left shoulder Mike Ambrosio MD 10/20/2019 M25.512 Pain in left shoulder Mike Ambrosio MD 09/16/2019 I20.8 Angina pectoris Lexa Rubalcava M.D. 09/16/2019 E78.5 Hyperlipidemia, unspecified Lexa Rubalcava M.D. 09/16/2019 I25.10 Coronary atherosclerosis Lexa Rubalcava M.D. 09/15/2019 M75.52 Bursitis of left shoulder ROBYN Montoya 09/15/2019 M75.52 Bursitis of left shoulder Mike Ambrosio MD 09/15/2019 M75.82 Other shoulder lesions, left shoulder ROBYN Montoya 09/15/2019 M75.82 Other shoulder lesions, left shoulder Mike Ambrosio MD 09/15/2019 M25.562 Pain in left knee Mike Ambrosio MD 09/04/2019 G43.719 Chronic migraine without aura, Carlos Dickerson N.P. intractable, without status 08/27/2019 M75.82 Other shoulder lesions, left shoulder Michelle Chau M.D., FACP 08/27/2019 M22.2x2 Patellofemoral disorders, left knee Michelle Chau M.D., FACP 06/27/2019 Z00.00 Encounter for general adult medical Jo Castillo M.D. examination without abnormal findings 06/27/2019 R07.9 Chest pain, unspecified Jo Castillo M.D. 06/27/2019 R19.7 Diarrhea, unspecified Jo Castillo M.D. 06/27/2019 F43.0 Acute stress reaction Jo Castillo M.D. 06/27/2019 Z23 Encounter for immunization Jo Castillo M.D. 06/02/2019 G43.719 Chronic migraine without aura, Carlos Dickerson N.P. intractable, without status m 05/06/2019 E78.00 Pure hypercholesterolemia, unspecified Dinahkristian Sharma, N.P. 05/06/2019 I25.10 Coronary atherosclerosis Dinah Sharma, N.P. 05/06/2019 R07.9 Chest pain, unspecified Dinah Sharma, N.P. 05/06/2019 I20.8 Other forms of angina pectoris Dinah Sharma, N.P. Plan of Treatment Future Appointment(s):01/22/2020 2:15 pm - Reinaldo Meyer M.D. at [facility]06/29/2020 3:00 pm - Jo Castillo M.D. at [facility] Internal Medicine - [facility]10/20/2019 - Mike Ambrosio, MDM75.52 Bursitis of left shoulderNew Xrays:MRI Knee Left W/O, Ordered: 10/20/19Follow up:Follow up: after MRIM25.512 Pain in left shoulder Functional Status Description No Information Available Mental Status Description No Information Available Referrals Refer to Reason for Referral Status Appt Date Addy Lee, BETH Lee or Julita Barrera, first available Sent [address], [place] [id number] [phone] Ann Kaiser M.D. Closed 07/23/[address] [place] [address] [phone]
--- OUTSIDE RECORDS SUMMARY | 2019-10-28 14:13 | XMS REPORT | Continuity of Care Document ---
:1970 External Reference #:[id number] Author Name Allergy Injection (transmitted by agent of provider Lety December) Address [address] [place] [address] Care Team Providers Name Role Phone David Fu FNP Care Team Information Incendiaries Supervisor [phone] Jo Castillo MD - Internal Care Team Information Incendiaries Supervisor [phone] Medicine Problems Active Problems Provider Date Allergic rhinitis due to animals Darian Lim M.D. Onset: 02/07/2019 Allergic rhinitis Darian Lim M.D. Onset: 02/07/2019 Allergy to other foods Darian Lim M.D. Onset: 02/03/2019 Allergic rhinitis due to pollen Darian Lim M.D. Onset: 02/03/2019 Social History Type Date Description Comments Sex Unknown Tobacco Use Start: Unknown Never Used Smokeless Tobacco ETOH Use Drinks 1 Alcoholic Beverage Per Week ETOH Use Occasionally consumes alcohol Tobacco Use Start: Unknown Patient has never smoked Recreational Drug Use Never Used Drugs Allergies, Adverse Reactions, Alerts Active Allergies Reaction Severity Comments Date Clindamycin nausea 02/03/2019 Contrast Dye nausea 02/03/2019 Medications Active Medications SIG Qnty Indications Ordering Date Provider Fluticasone [place] 1 [place] 16gm J30.1 Lam Osorio, 02/03/2019 Propionate Into Each Nostril ROLL OUT MANAGER-BC 50mcg/Act One Time Daily Suspension Amlodipine Besylate Take 1 Tablet By Unknown Mouth Every Day 2.5mg Tablets [place] 3 2000 mg Unknown 1000mg Capsules Vitamin D-3 2 by mouth every Unknown 1000Unit day Capsules Magnesium Unknown 400mg Tablets Vitamin B-2 2 tabs once a day Unknown 100mg Tablets Butalbital/Acetaminop Take 1 To 2 Unknown hen/Caffeine Capsules By Mouth Every 8 Hours For 50-300-40mg Capsules Migraine Headaches Aspirin 81 Unknown 81mg Tablets Azelastine HCL [place] 1 [place] 30units Teena Hurd, (Nasal) Into Each Nostril ROLL OUT MANAGER-C 0.1% Solution In The Morning And AT Night Zantac 75 Unknown 75mg Tablets Nitroglycerin Dissolve One Unknown 0.4mg Tablet Under The Tablets Sub Tongue as Needed For Chest Pain, May Repeat Every 5Minutes For Up To 3 Total Doses - Replace Every 12 Months Clobetasol Propionate Apply Topically Unknown To Affected 0.05% Solution Area(S) On Scalp Two Times Daily as Needed Ketoconazole Wash Hair Three Unknown 2% Shampoo Times Weekly Leave On 5 Minutes Before Washing Off Montelukast Sodium Cotton, 10mg MD Jo Tablets Atorvastatin Calcium Lexa Rubalcava 40mg Tablets Metoprolol Succinate Lexa Rubalcava ER 25mg Tablets ER 24HR Topiramate Unknown 25mg Tablets Medications Administered in Office Medication SIG Qnty Indications Ordering Provider Date Injection Allergy Injection 10/23/2019 Injection Injection Allergy Injection 10/16/2019 Injection Injection Allergy Injection 10/10/2019 Injection Injection Allergy Injection 10/01/2019 Injection Injection Allergy Injection 09/25/2019 Injection Injection Allergy Injection 09/17/2019 Injection Injection Allergy Injection 09/10/2019 Injection Injection Allergy Injection 09/03/2019 Injection Injection Allergy Injection 08/25/2019 Injection Injection Allergy Injection 08/15/2019 Injection Injection Allergy Injection 07/30/2019 Injection Injection Allergy Injection 07/23/2019 Injection Injection Allergy Injection 07/11/2019 Injection Injection Allergy Injection 07/04/2019 Injection Injection Allergy Injection 06/27/2019 Injection Injection Allergy Injection 06/19/2019 Injection Injection Allergy Injection 06/06/2019 Injection Injection Allergy Injection 05/30/2019 Injection Injection Allergy Injection 05/23/2019 Injection Injection Allergy Injection 05/16/2019 Injection Injection Allergy Injection 05/09/2019 Injection Injection Allergy Injection 05/02/2019 Injection Injection Allergy Injection 04/25/2019 Injection Injection Allergy Injection 04/18/2019 Injection Injection Allergy Injection 04/11/2019 Injection Injection Allergy Injection 04/04/2019 Injection Injection Allergy Injection 03/27/2019 Injection Injection Allergy Injection 03/19/2019 Injection Injection Allergy Injection 03/10/2019 Injection Injection Allergy Injection 03/03/2019 Injection Injection Allergy Injection 02/21/2019 Injection Injection Allergy Injection 02/12/2019 Injection Immunizations CPT Code Status Date Vaccine Lot # [id number] Given Unknown Influenza Vaccine Vital Signs Date Vital Result Comment 05/05/2019 2:09pm Height 62 inches 5'2" Weight 198.00 lb Weight 89.813 kg Respiratory Rate 16 /min Heart Rate 73 /min O2 % BldC Oximetry 97 % BP Systolic 102 mmHg BP Diastolic 72 mmHg BMI (Body Mass Index) 36.2 kg/m2 02/03/2019 10:26am Height 62 inches 5'2" Weight 197.00 lb Weight 89.359 kg Respiratory Rate 20 /min Heart Rate 76 /min O2 % BldC Oximetry 97 % BP Systolic 97 mmHg BP Diastolic 64 mmHg BMI (Body Mass Index) 36.0 kg/m2 Results Description No Information Available Procedures Date Code Description Status 10/23/2019 37396 Extract 1-10 Completed 10/23/2019 49415 Injection Completed 10/16/2019 50649 Injection Completed 10/10/2019 23855 Injection Completed 10/01/2019 90901 Injection Completed 09/25/2019 67393 Injection Completed 09/17/2019 64640 Injection Completed 09/10/2019 81165 Injection Completed 09/03/2019 48055 Injection Completed 08/25/2019 67759 Injection Completed 08/15/2019 57037 Injection Completed 07/30/2019 21724 Extract 1-10 Completed 07/30/2019 37912 Injection Completed 07/23/2019 59772 Injection Completed 07/11/2019 14979 Injection Completed 07/04/2019 02858 Injection Completed 06/27/2019 79956 Injection Completed 06/19/2019 08145 Injection Completed 06/06/2019 57063 Injection Completed 05/30/2019 57928 Injection Completed 05/23/2019 76187 Injection Completed 05/16/2019 14902 Injection Completed 05/09/2019 67298 Injection Completed 05/02/2019 46007 Extract 1-10 Completed 05/02/2019 33331 Injection Completed 04/25/2019 49001 Injection Completed Medical Devices Description No Information Available Encounters Type Date Location Provider Dx Diagnosis Office Visit 05/05/2019 Trisha Cruz, J30.1 Allergic rhinitis due 2:00p ROLL OUT MANAGER-C to pollen J30.2 Other seasonal allergic rhinitis J30.81 Allergic rhinitis due to animal (cat) (dog) hair and dander J30.89 Other allergic rhinitis Assessments Date Code Description Provider 10/23/2019 J30.1 Allergic rhinitis due to pollen Darian Lim M.D. 10/23/2019 J30.1 Allergic rhinitis due to pollen Allergy Injection 10/23/2019 J30.2 Other seasonal allergic rhinitis Darian Lim M.D. 10/23/2019 J30.2 Other seasonal allergic rhinitis Allergy Injection 10/23/2019 J30.81 Allergic rhinitis due to animal (cat) (dog) Darian Lim M.D. hair and dander 10/23/2019 J30.81 Allergic rhinitis due to animal (cat) (dog) Allergy Injection hair and dander 10/23/2019 J30.89 Other allergic rhinitis Darian Lim M.D. 10/23/2019 J30.89 Other allergic rhinitis Allergy Injection 10/16/2019 J30.1 Allergic rhinitis due to pollen Darian Lim M.D. 10/16/2019 J30.1 Allergic rhinitis due to pollen Allergy Injection 10/16/2019 J30.2 Other seasonal allergic rhinitis Darian Lim M.D. 10/16/2019 J30.2 Other seasonal allergic rhinitis Allergy Injection 10/16/2019 J30.81 Allergic rhinitis due to animal (cat) (dog) Darian Lim M.D. hair and dander 10/16/2019 J30.81 Allergic rhinitis due to animal (cat) (dog) Allergy Injection hair and dander 10/16/2019 J30.89 Other allergic rhinitis Darian Lim M.D. 10/16/2019 J30.89 Other allergic rhinitis Allergy Injection 10/10/2019 J30.1 Allergic rhinitis due to pollen Darian Lim M.D. 10/10/2019 J30.1 Allergic rhinitis due to pollen Allergy Injection 10/10/2019 J30.2 Other seasonal allergic rhinitis Darian Lim M.D. 10/10/2019 J30.2 Other seasonal allergic rhinitis Allergy Injection 10/10/2019 J30.81 Allergic rhinitis due to animal (cat) (dog) aDrian Lim M.D. hair and dander 10/10/2019 J30.81 Allergic rhinitis due to animal (cat) (dog) Allergy Injection hair and dander 10/10/2019 J30.89 Other allergic rhinitis Darian Lim M.D. 10/10/2019 J30.89 Other allergic rhinitis Allergy Injection 10/01/2019 J30.1 Allergic rhinitis due to pollen Darian Lim M.D. 10/01/2019 J30.1 Allergic rhinitis due to pollen Allergy Injection 10/01/2019 J30.2 Other seasonal allergic rhinitis Darian Lim M.D. 10/01/2019 J30.2 Other seasonal allergic rhinitis Allergy Injection 10/01/2019 J30.81 Allergic rhinitis due to animal (cat) (dog) Darian Lim M.D. hair and dander 10/01/2019 J30.81 Allergic rhinitis due to animal (cat) (dog) Allergy Injection hair and dander 10/01/2019 J30.89 Other allergic rhinitis Darian Lim M.D. 10/01/2019 J30.89 Other allergic rhinitis Allergy Injection 09/25/2019 J30.1 Allergic rhinitis due to pollen Darian Lim M.D. 09/25/2019 J30.1 Allergic rhinitis due to pollen Allergy Injection 09/25/2019 J30.2 Other seasonal allergic rhinitis Darian Lim M.D. 09/25/2019 J30.2 Other seasonal allergic rhinitis Allergy Injection 09/25/2019 J30.81 Allergic rhinitis due to animal (cat) (dog) Darian Lim M.D. hair and dander 09/25/2019 J30.81 Allergic rhinitis due to animal (cat) (dog) Allergy Injection hair and dander 09/25/2019 J30.89 Other allergic rhinitis Darian Lim M.D. 09/25/2019 J30.89 Other allergic rhinitis Allergy Injection 09/17/2019 J30.1 Allergic rhinitis due to pollen Darian Lim M.D. 09/17/2019 J30.1 Allergic rhinitis due to pollen Allergy Injection 09/17/2019 J30.2 Other seasonal allergic rhinitis Darian Lim M.D. 09/17/2019 J30.2 Other seasonal allergic rhinitis Allergy Injection 09/17/2019 J30.81 Allergic rhinitis due to animal (cat) (dog) Darian Lim M.D. hair and dander 09/17/2019 J30.81 Allergic rhinitis due to animal (cat) (dog) Allergy Injection hair and dander 09/17/2019 J30.89 Other allergic rhinitis Darian Lim M.D. 09/17/2019 J30.89 Other allergic rhinitis Allergy Injection 09/10/2019 J30.1 Allergic rhinitis due to pollen Darian Lim M.D. 09/10/2019 J30.1 Allergic rhinitis due to pollen Allergy Injection 09/10/2019 J30.2 Other seasonal allergic rhinitis Darian Lim M.D. 09/10/2019 J30.2 Other seasonal allergic rhinitis Allergy Injection 09/10/2019 J30.81 Allergic rhinitis due to animal (cat) (dog) Darian Lim M.D. hair and dander 09/10/2019 J30.81 Allergic rhinitis due to animal (cat) (dog) Allergy Injection hair and dander 09/10/2019 J30.89 Other allergic rhinitis Darian Lim M.D. 09/10/2019 J30.89 Other allergic rhinitis Allergy Injection 09/03/2019 J30.1 Allergic rhinitis due to pollen Darian Lim M.D. 09/03/2019 J30.1 Allergic rhinitis due to pollen Allergy Injection 09/03/2019 J30.2 Other seasonal allergic rhinitis Darian Lim M.D. 09/03/2019 J30.2 Other seasonal allergic rhinitis Allergy Injection 09/03/2019 J30.81 Allergic rhinitis due to animal (cat) (dog) Darian Lim M.D. hair and dander 09/03/2019 J30.81 Allergic rhinitis due to animal (cat) (dog) Allergy Injection hair and dander 09/03/2019 J30.89 Other allergic rhinitis Darian Lim M.D. 09/03/2019 J30.89 Other allergic rhinitis Allergy Injection 08/25/2019 J30.1 Allergic rhinitis due to pollen Darian Lim M.D. 08/25/2019 J30.1 Allergic rhinitis due to pollen Allergy Injection 08/25/2019 J30.2 Other seasonal allergic rhinitis Darian Lim M.D. 08/25/2019 J30.2 Other seasonal allergic rhinitis Allergy Injection 08/25/2019 J30.81 Allergic rhinitis due to animal (cat) (dog) Darian Lim M.D. hair and dander 08/25/2019 J30.81 Allergic rhinitis due to animal (cat) (dog) Allergy Injection hair and dander 08/25/2019 J30.89 Other allergic rhinitis Darian Lim M.D. 08/25/2019 J30.89 Other allergic rhinitis Allergy Injection 08/15/2019 J30.1 Allergic rhinitis due to pollen Darian Lim M.D. 08/15/2019 J30.1 Allergic rhinitis due to pollen Allergy Injection 08/15/2019 J30.2 Other seasonal allergic rhinitis Darian Lim M.D. 08/15/2019 J30.2 Other seasonal allergic rhinitis Allergy Injection 08/15/2019 J30.81 Allergic rhinitis due to animal (cat) (dog) Darian Lim M.D. hair and dander 08/15/2019 J30.81 Allergic rhinitis due to animal (cat) (dog) Allergy Injection hair and dander 08/15/2019 J30.89 Other allergic rhinitis Darian Lim M.D. 08/15/2019 J30.89 Other allergic rhinitis Allergy Injection 07/30/2019 J30.1 Allergic rhinitis due to pollen Darian Lim M.D. 07/30/2019 J30.1 Allergic rhinitis due to pollen Allergy Injection 07/30/2019 J30.2 Other seasonal allergic rhinitis Darian Lim M.D. 07/30/2019 J30.2 Other seasonal allergic rhinitis Allergy Injection 07/30/2019 J30.81 Allergic rhinitis due to animal (cat) (dog) Darian Lim M.D. hair and dander 07/30/2019 J30.81 Allergic rhinitis due to animal (cat) (dog) Allergy Injection hair and dander 07/30/2019 J30.89 Other allergic rhinitis Darian Lim M.D. 07/30/2019 J30.89 Other allergic rhinitis Allergy Injection 07/23/2019 J30.1 Allergic rhinitis due to pollen Darian Lim M.D. 07/23/2019 J30.1 Allergic rhinitis due to pollen Allergy Injection 07/23/2019 J30.2 Other seasonal allergic rhinitis Darian Lim M.D. 07/23/2019 J30.2 Other seasonal allergic rhinitis Allergy Injection 07/23/2019 J30.81 Allergic rhinitis due to animal (cat) (dog) Darian Lim M.D. hair and dander 07/23/2019 J30.81 Allergic rhinitis due to animal (cat) (dog) Allergy Injection hair and dander 07/23/2019 J30.89 Other allergic rhinitis Darian Lim M.D. 07/23/2019 J30.89 Other allergic rhinitis Allergy Injection 07/11/2019 J30.1 Allergic rhinitis due to pollen Darian Lim M.D. 07/11/2019 J30.1 Allergic rhinitis due to pollen Allergy Injection 07/11/2019 J30.2 Other seasonal allergic rhinitis Darian Lim M.D. 07/11/2019 J30.2 Other seasonal allergic rhinitis Allergy Injection 07/11/2019 J30.81 Allergic rhinitis due to animal (cat) (dog) Darian Lim M.D. hair and dander 07/11/2019 J30.81 Allergic rhinitis due to animal (cat) (dog) Allergy Injection hair and dander 07/11/2019 J30.89 Other allergic rhinitis Darian Lim M.D. 07/11/2019 J30.89 Other allergic rhinitis Allergy Injection 07/04/2019 J30.1 Allergic rhinitis due to pollen Darian Lim M.D. 07/04/2019 J30.1 Allergic rhinitis due to pollen Allergy Injection 07/04/2019 J30.2 Other seasonal allergic rhinitis Darian Lim M.D. 07/04/2019 J30.2 Other seasonal allergic rhinitis Allergy Injection 07/04/2019 J30.81 Allergic rhinitis due to animal (cat) (dog) Darian Lim M.D. hair and dander 07/04/2019 J30.81 Allergic rhinitis due to animal (cat) (dog) Allergy Injection hair and dander 07/04/2019 J30.89 Other allergic rhinitis Darian Lim M.D. 07/04/2019 J30.89 Other allergic rhinitis Allergy Injection 06/27/2019 J30.1 Allergic rhinitis due to pollen Darian Lim M.D. 06/27/2019 J30.1 Allergic rhinitis due to pollen Allergy Injection 06/27/2019 J30.2 Other seasonal allergic rhinitis Darian Lim M.D. 06/27/2019 J30.2 Other seasonal allergic rhinitis Allergy Injection 06/27/2019 J30.81 Allergic rhinitis due to animal (cat) (dog) Darian Lim M.D. hair and dander 06/27/2019 J30.81 Allergic rhinitis due to animal (cat) (dog) Allergy Injection hair and dander 06/27/2019 J30.89 Other allergic rhinitis Darian Lim M.D. 06/27/2019 J30.89 Other allergic rhinitis Allergy Injection 06/19/2019 J30.1 Allergic rhinitis due to pollen Darian Lim M.D. 06/19/2019 J30.1 Allergic rhinitis due to pollen Allergy Injection 06/19/2019 J30.2 Other seasonal allergic rhinitis Darian Lim M.D. 06/19/2019 J30.2 Other seasonal allergic rhinitis Allergy Injection 06/19/2019 J30.81 Allergic rhinitis due to animal (cat) (dog) Darian Lim M.D. hair and dander 06/19/2019 J30.81 Allergic rhinitis due to animal (cat) (dog) Allergy Injection hair and dander 06/19/2019 J30.89 Other allergic rhinitis Darian Lim M.D. 06/19/2019 J30.89 Other allergic rhinitis Allergy Injection 06/06/2019 J30.1 Allergic rhinitis due to pollen Darian Lim M.D. 06/06/2019 J30.1 Allergic rhinitis due to pollen Allergy Injection 06/06/2019 J30.2 Other seasonal allergic rhinitis Darian Lim M.D. 06/06/2019 J30.2 Other seasonal allergic rhinitis Allergy Injection 06/06/2019 J30.81 Allergic rhinitis due to animal (cat) (dog) Darian Lim M.D. hair and dander 06/06/2019 J30.81 Allergic rhinitis due to animal (cat) (dog) Allergy Injection hair and dander 06/06/2019 J30.89 Other allergic rhinitis Darian Lim M.D. 06/06/2019 J30.89 Other allergic rhinitis Allergy Injection 05/30/2019 J30.1 Allergic rhinitis due to pollen Darian Lim M.D. 05/30/2019 J30.1 Allergic rhinitis due to pollen Allergy Injection 05/30/2019 J30.2 Other seasonal allergic rhinitis Darian Lim M.D. 05/30/2019 J30.2 Other seasonal allergic rhinitis Allergy Injection 05/30/2019 J30.81 Allergic rhinitis due to animal (cat) (dog) Darian Lim M.D. hair and dander 05/30/2019 J30.81 Allergic rhinitis due to animal (cat) (dog) Allergy Injection hair and dander 05/30/2019 J30.89 Other allergic rhinitis Darian Lim M.D. 05/30/2019 J30.89 Other allergic rhinitis Allergy Injection 05/23/2019 J30.1 Allergic rhinitis due to pollen Darian Lim M.D. 05/23/2019 J30.1 Allergic rhinitis due to pollen Allergy Injection 05/23/2019 J30.2 Other seasonal allergic rhinitis Darian Lim M.D. 05/23/2019 J30.2 Other seasonal allergic rhinitis Allergy Injection 05/23/2019 J30.81 Allergic rhinitis due to animal (cat) (dog) Darian Lim M.D. hair and dander 05/23/2019 J30.81 Allergic rhinitis due to animal (cat) (dog) Allergy Injection hair and dander 05/23/2019 J30.89 Other allergic rhinitis Darian Lim M.D. 05/23/2019 J30.89 Other allergic rhinitis Allergy Injection 05/16/2019 J30.1 Allergic rhinitis due to pollen Darian Lim M.D. 05/16/2019 J30.1 Allergic rhinitis due to pollen Allergy Injection 05/16/2019 J30.2 Other seasonal allergic rhinitis Darian Lim M.D. 05/16/2019 J30.2 Other seasonal allergic rhinitis Allergy Injection 05/16/2019 J30.81 Allergic rhinitis due to animal (cat) (dog) Darian Lim M.D. hair and dander 05/16/2019 J30.81 Allergic rhinitis due to animal (cat) (dog) Allergy Injection hair and dander 05/16/2019 J30.89 Other allergic rhinitis Darian Lim M.D. 05/16/2019 J30.89 Other allergic rhinitis Allergy Injection 05/09/2019 J30.1 Allergic rhinitis due to pollen Darian Lim M.D. 05/09/2019 J30.1 Allergic rhinitis due to pollen Allergy Injection 05/09/2019 J30.2 Other seasonal allergic rhinitis Darian Lim M.D. 05/09/2019 J30.2 Other seasonal allergic rhinitis Allergy Injection 05/09/2019 J30.81 Allergic rhinitis due to animal (cat) (dog) Darian Lim M.D. hair and dander 05/09/2019 J30.81 Allergic rhinitis due to animal (cat) (dog) Allergy Injection hair and dander 05/09/2019 J30.89 Other allergic rhinitis Darian Lim M.D. 05/09/2019 J30.89 Other allergic rhinitis Allergy Injection 05/05/2019 J30.1 Allergic rhinitis due to pollen Delores Cortez M.D. 05/05/2019 J30.1 Allergic rhinitis due to pollen LAI Doshi-C 05/05/2019 J30.2 Other seasonal allergic rhinitis Delores Cortez M.D. 05/05/2019 J30.2 Other seasonal allergic rhinitis LAI Doshi-C 05/05/2019 J30.81 Allergic rhinitis due to animal (cat) (dog) Delores Cortez M.D. hair and dander 05/05/2019 J30.81 Allergic rhinitis due to animal (cat) (dog) LAI Doshi-C hair and dander 05/05/2019 J30.89 Other allergic rhinitis Delores Cortez M.D. 05/05/2019 J30.89 Other allergic rhinitis DARREL Doshi 05/02/2019 J30.1 Allergic rhinitis due to pollen Darian Lim M.D. 05/02/2019 J30.1 Allergic rhinitis due to pollen Allergy Injection 05/02/2019 J30.2 Other seasonal allergic rhinitis Darian Lim M.D. 05/02/2019 J30.2 Other seasonal allergic rhinitis Allergy Injection 05/02/2019 J30.81 Allergic rhinitis due to animal (cat) (dog) Darian Lim M.D. hair and dander 05/02/2019 J30.81 Allergic rhinitis due to animal (cat) (dog) Allergy Injection hair and dander 05/02/2019 J30.89 Other allergic rhinitis Darian Lim M.D. 05/02/2019 J30.89 Other allergic rhinitis Allergy Injection 04/25/2019 J30.1 Allergic rhinitis due to pollen Darian Lim M.D. 04/25/2019 J30.1 Allergic rhinitis due to pollen Allergy Injection 04/25/2019 J30.2 Other seasonal allergic rhinitis Darian Lim M.D. 04/25/2019 J30.2 Other seasonal allergic rhinitis Allergy Injection 04/25/2019 J30.81 Allergic rhinitis due to animal (cat) (dog) Darian Lim M.D. hair and dander 04/25/2019 J30.81 Allergic rhinitis due to animal (cat) (dog) Allergy Injection hair and dander 04/25/2019 J30.89 Other allergic rhinitis Darian Lim M.D. 04/25/2019 J30.89 Other allergic rhinitis Allergy Injection Plan of Treatment Future Appointment(s):11/03/2019 2:20 pm - DARREL Doshi at [facility] Functional Status Description No Information Available Mental Status Description No Information Available Referrals Description No Information Available
--- OUTSIDE RECORDS SUMMARY | 2019-10-28 14:13 | XMS REPORT | Continuity of Care Document ---
:1970 External Reference #:[id number] Author Name Mike Ambrosio MD (transmitted by agent of provider London Garcia) Address [address] [place] [address] Care Team Providers Name Role Phone Daphnie Khan MD - Internal Care Team Information Switch House Operator Medicine Regi Gonzalez MD - Family Care Team Information Switch House Operator [phone] Medicine Ann Kaiser M.D. - Single Care Team Information Switch House Operator Specialty Addy Lee LCSW - Clinical Care Team Information Switch House Operator [phone] Problems Active Problems Provider Date Coronary atherosclerosis [...] 11/05/2017 aura Angina pectoris Neftali Singletary MD, [facility], Onset: 03/26/2019 [facility] Social History Type Date Description Comments Sex Unknown Tobacco Use Start: Unknown Never Smoked Cigarettes ETOH Use Currently consumes 1-2 drinks/week alcohol Tobacco Use Start: Unknown Patient has never smoked Recreational Drug Use Denies Drug Use Smoking Status Reviewed: 10/27/19 Patient has never smoked Exercise Type/Frequency Exercises [...] Indications Ordering Provider Date Depomedrol 40MG ROBYN Montoya 09/15/2019 Injection Depomedrol 80MG Андрей Mccarty M.D. 06/28/2015 Injection Depomedrol 80MG Андрей Mccarty M.D. 02/09/2015 Injection Immunizations CPT Code Status Date Vaccine Lot # [id number] Given 06/27/2019 Influenza Virus Vaccine, Quadrivalent (Cciiv4), [id number] Derived From Cell 53018 Given 05/30/2018 Influenza Virus Vaccine, Quadrivalent, Split, [id number] Preservative Free 56405 Given 12/18/2014 Measles Mumps And Rubella MMR [id number] 22886 Given 01/30/2013 Tdap - Tetanus/Diptheria/Acellular Pertussis [id number] 58501 Given 06/08/2011 Influenza Virus 3Yrs & Over [id number] Vital Signs Date Vital Result Comment 10/27/2019 4:01pm Height 66.5 inches 5'6.50" Weight 190.00 lb Heart Rate 92 /min BP Systolic 116 mmHg BP Diastolic 84 mmHg Pain Level 2 BMI (Body Mass Index) 30.2 kg/m2 10/20/2019 2:32pm Height 66.5 inches 5'6.50" Weight 190.00 lb Heart Rate 76 /min BP Systolic Standing 128 mmHg BP Diastolic Standing 72 mmHg Respiratory Rate 13 /min Body Temperature 98.4 F Pain Level 1 increases with movement BMI (Body Mass Index) 30.2 kg/m2 Results Test Acquired Date Facility Test Result H/L Range Note Xray 09/15/2019 [facility] Shoulder Left 2+ VWS <pending> [address] [place] [address] [phone] Knee 3 Views LT <pending> Lipid Panel - 06/24/2019 [facility] Creatine 65 U/L Normal 10- [address] Kinase(CK) [place] [address] [phone] Comp Metabolic 06/24/2019 [facility] Sodium 137 Normal 135- [address] mmol/[place] [address] [phone] Potassium 4.5 mmol/L Normal 3.5-5.0 Chloride 103 [...] Egfr 86.8 >60 1 Lipid Profile 06/24/2019 [facility] Triglycerides 167 mg/dL 2 (Trig/Chol/HDL) [address] [place] [address] [phone] Cholesterol 178 mg/dL 3 HDL Cholesterol 42.3 [...] >189 Procedures Date Code Description Status 09/16/2019 11908 EKG Tracing & Interpretation Completed 09/15/2019 46318 Inject/Drain Joint/Bursa Major W/O US Completed Medical Devices Description No Information Available Encounters Type Date Location Provider Dx Diagnosis Office Visit 10/27/2019 [facility] Mike Arteaga M75.52 Bursitis of left 3:30p at Trisha Ambrosio MD shoulder M25.512 Pain in left shoulder Office Visit 09/16/2019 1:40p [facility] Lexa Gallardo I20.8 Other forms of Jacob Rubalcava angina pectoris E78.5 Hyperlipidemia, unspecified I25.10 Athscl heart disease of [place] coronary artery w/o ang pctrs Office Visit 09/15/2019 2:30p [facility] Arteaga M75.52 Bursitis of at Trisha Ambrosio MD left shoulder M75.82 Other shoulder lesions, left shoulder M25.562 Pain in left knee Office Visit 09/04/2019 Larry Gonzalez G43.719 Chronic migraine 2:00p Neurologic Tuan, N.P. w/o aura, Services Of [facility] intractable, w/o stat migr Office Visit 08/27/2019 [facility] Internal Michelle Chau M75.82 Other shoulder 4:30p Medicine - Shawna James, FACP lesions, left shoulder M22.2x2 Patellofemoral disorders, left knee Office Visit 06/27/2019 3:40p [facility] Internal Jo Z00.00 Encntr for Medicine - Shawna Castillo M.D. general adult medical exam w/o abnormal findings R07.9 Chest pain, unspecified R19.7 Diarrhea, unspecified F43.0 Acute stress reaction Z23 Encounter for immunization Office Visit 06/02/2019 Larry Gonzalez G43.719 Chronic migraine 3:30p Neurologic Tuan NJo w/o aura, [facility] intractable, w/o stat migr Office Visit 05/06/2019 Trisha Sharma, E78.00 Pure 1:30p Cardiology Of N.P. hypercholesterolem [facility] ia, unspecified I25.10 Athscl heart disease of [place] coronary artery w/o ang pctrs R07.9 Chest pain, unspecified I20.8 Other forms of angina pectoris Assessments Date Code Description Provider 10/27/2019 M75.52 Bursitis of left shoulder Mike Ambrosio MD 10/27/2019 M25.512 Pain in left shoulder Mike Ambrosio MD 10/20/2019 M75.52 Bursitis of left shoulder Mike [...] Carlos Dickerson N.P. intractable, without status m 08/27/2019 M75.82 Other shoulder lesions, left shoulder [...] 06/02/2019 G43.719 Chronic migraine without aura, Carlos Dickerson, N.P. intractable, without status m 05/06/2019 E78.00 Pure hypercholesterolemia, unspecified Dinahkristian Sharma, N.P. 05/06/2019 I25.10 Coronary atherosclerosis Dinah Sharma, N.P. 05/06/2019 R07.9 Chest pain, unspecified Dinah Sharma, N.P. 05/06/2019 I20.8 Other forms of angina pectoris Dinah Sharma, N.P. Plan of Treatment Future Appointment(s):01/22/2020 2:15 pm - Reinaldo Meyer M.D. at [facility]06/29/2020 3:00 pm - Jo Castillo M.D. at [facility] - Mike Ambrosio, MDM75.52 Bursitis of left shoulderFollow up:Follow up: mid DecemberM25.512 Pain in left shoulder Functional Status Description No Information Available Mental Status Description No Information Available Referrals Refer to Reason for Referral Status Appt Date Addy Lee, BETH Lee or Julita Barrera, first available Sent [address], [place] [address] [phone] Ann Kaiser M.D. Closed 07/23/[address] [place] [address] [phone]
--- OUTSIDE RECORDS SUMMARY | 2019-10-28 14:13 | XMS REPORT | Continuity of Care Document ---
:1970 External Reference #:[id number] Author Name Lexa Rubalcava M.D. (transmitted by agent of provider Juju Cross ) Address [address] [place] [address] Care Team Providers Name Role Phone Daphnie Khan MD - Internal Care Team Information Chemical Analyst Medicine Regi Gonzalez MD - Family Care Team Information Chemical Analyst Medicine Ann Kaiser M.D. - Single Care Team Information Chemical Analyst Specialty Addy Lee LCSW - Clinical Care Team Information Chemical Analyst [phone] Problems Active Problems Provider Date Coronary atherosclerosis Jo Castillo M.D. Onset: 01/25/2019 Hyperlipidemia Jo Castillo M.D. Onset: 08/02/2010 Strain of rotator cuff capsule Андрей Mccarty M.D. Onset: 01/25/2015 Disorder of bursa of shoulder region Андрей Mccarty M.D. Onset: 02/09/2015 Adhesive capsulitis of shoulder Андрей Mccarty M.D. Onset: 06/07/2015 Seasonal allergic rhinitis Shabbir Pozo NP Onset: 12/11/2016 Chronic intractable migraine mary jane Meyer M.D. Onset: 11/05/2017 aura Angina pectoris Neftali Singletary MD, [facility], Onset: 03/26/2019 [facility] Social History Type Date Description Comments Sex Unknown Tobacco Use Start: Unknown Never Smoked Cigarettes ETOH Use Currently consumes 1-2 drinks/week alcohol Tobacco Use Start: Unknown Patient has never smoked Recreational Drug Use Denies Drug Use Smoking Status Reviewed: 09/16/19 Patient has never smoked Exercise Type/Frequency Exercises [...] 120caps G43.719 Reinaldo Meyer, 11/05/2017 100mg day M.DMari Capsules Zyrtec Allergy 1 by mouth every 30tabs J30.2 Shabbir Pozo NP 12/11/2016 10mg day Tablets Montelukast Sodium take 1 tablet 90tabs J30.2 Jo Castillo, 12/11/2016 daily M.DMari 10mg Tablets Atorvastatin Calcium take 2 tablets 180tabs E78.5 Lexa Gallardo 04/14/2016 by mouth every Jacob Rubalcava 40mg Tablets day Fish Oil 2 po qd Jo Castillo, 03/06/2011 1000mg M.D. Capsules Vitamin D-3 2 po qd Jo Castillo, 03/06/2011 1000Unit M.D. Tablets Aspirin Childrens 1 tab daily Jo Castillo, 03/06/2011 M.DMari 81mg Chewtabs Advil prn 100caps Unknown 200mg [...] CPT Code Status Date Vaccine Lot # [id number] Given 06/27/2019 Influenza Virus Vaccine, Quadrivalent (Cciiv4), [id number] Derived From Cell 15294 Given 05/30/2018 Influenza Virus Vaccine, Quadrivalent, Split, [id number] Preservative Free 31852 Given 12/18/2014 Measles Mumps And Rubella MMR [id number] 22094 Given 01/30/2013 Tdap - Tetanus/Diptheria/Acellular Pertussis [id number] 15316 Given 06/08/2011 Influenza Virus 3Yrs & Over [id number] Vital Signs Date Vital Result Comment 09/16/2019 1:28pm Height 66.5 inches 5'6.50" Weight 189.25 lb without shoes Heart Rate 84 /min left radial reqular BP Systolic Sitting 128 mmHg ule reg cuff BP Diastolic Sitting 84 mmHg ule reg cuff BP Systolic Standing 130 mmHg ule reg cuff BP Diastolic Standing 86 mmHg ule reg cuff BMI (Body Mass Index) 30.1 kg/m2 Ejection Fraction 55-60% 08/01/2018 Echocardiogram 09/15/2019 3:26pm Height 66.5 inches 5'6.50" Weight 195.00 lb Heart Rate 72 /min BP Systolic 120 mmHg BP Diastolic 72 mmHg Respiratory Rate 12 /min Pain Level 0 increases with movement BMI (Body Mass Index) 31.0 kg/m2 Results Test Acquired Date Facility Test Result H/L Range Note Xray 09/15/2019 [facility] Shoulder Left 2+ VWS <pending> [address] [place] [address] [phone] Knee 3 Views LT <pending> Lipid Panel - 06/24/2019 [facility] Creatine 65 U/L Normal 10- [address] Kinase(CK) [place] [address] [phone] Comp Metabolic 06/24/2019 [facility] Sodium 137 Normal 135- [address] mmol/[place] [address] [phone] Potassium 4.5 mmol/L Normal 3.5-5.0 Chloride 103 [...] Egfr 86.8 >60 1 Lipid Profile 06/24/2019 [facility] Triglycerides 167 mg/dL 2 (Trig/Chol/HDL) [address] [place] [address] [phone] Cholesterol 178 mg/dL 3 HDL Cholesterol 42.3 mg/dL 4 LDL Cholesterol 102 mg/dL 5 CBC Auto 03/20/2019 [facility] White Blood 8.1 10^3/uL Normal 3.5-10.8 [address] [place] [address] [phone] Red Blood Count 5.53 10^6/uL High 4.18-5.48 [...] Blood Cells % 0.0 Basic Metabolic 03/20/2019 [facility] Sodium 134 mmol/L Low 135-145 Panel [address] [place] [address] [phone] Chloride 104 mmol/L Normal 101-111 Co2 Carbon Dioxide 22 mmol/L Normal 22-32 Glucose 162 mg/dL High 70-100 Blood Urea Nitrogen 24 mg/dL Normal 6-24 Creatinine 1.02 mg/dL Normal 0.67-1.17 BUN/Creatinine Ratio 23.5 High 8-20 Calcium 10.0 mg/dL Normal 8.6-10.3 Egfr Non- 78.3 >60 Egfr 94.7 >60 7 Potassium 4.7 mmol/L Normal 3.5-5.0 Anion Gap 8 mmol/L Normal 2-11 Inr/Protime 03/20/2019 [facility] Inr 0.94 Normal 0.82-1.09 8 [address] [place] [address] [phone] Laboratory test 03/20/2019 [facility] Partial 33.7 Normal 26.0 -38.0 9 finding 101 [facility] [place] [address] Time PTT [phone] Type & Screen 03/20/2019 [facility] Patient O Positive [address] [facility] [place] [address] [phone] Antibody Screen NEGATIVE 1 Because ethnic data [...] >189 6 [address] IF CRITICAL [id number] DR COSTA 7 Because ethnic data is not always [...] DR COSTA Procedures Date Code Description Status 09/16/2019 41058 EKG Tracing & Interpretation Completed 09/15/2019 47728 Inject/Drain Joint/Bursa Major W/O US Completed 04/03/2019 33680 EKG Tracing & Interpretation Completed 03/20/2019 37961 Cath PLMT&NJX L Ventriculog Img S&I Completed Medical Devices Description No Information Available Encounters Type Date Location Provider Dx Diagnosis Office Visit 09/04/2019 Larry Dickerson, G43.719 Chronic migraine 2:00p Services Of Molding Machine Operator Helper N.P. w/o aura, intractable, w/o stat migr Office Visit 08/27/2019 [facility] Internal Michelle Kandi, M75.82 Other shoulder 4:30p Medicine - Shawna James, FACP lesions, left shoulder M22.2x2 Patellofemoral disorders, left knee Office Visit 06/27/2019 3:40p [facility] Internal Jo Z00.00 Encntr for Medicine - Shawna Castillo M.D. general adult medical exam w/o abnormal findings R07.9 Chest pain, unspecified R19.7 Diarrhea, unspecified F43.0 Acute stress reaction Z23 Encounter for immunization Office Visit 06/02/2019 Larry Gonzalez G43.719 Chronic migraine 3:30p Neurologic Dickerson, N.P. w/o aura, Services Of [facility] intractable, w/o stat migr Office Visit 05/06/2019 [place] Dinah Sharma, E78.00 Pure 1:30p Cardiology Of N.P. hypercholesterolem Molding Machine Operator Helper ia, unspecified I25.10 Athscl heart disease of [place] coronary artery w/o ang pctrs R07.9 Chest pain, unspecified I20.8 Other forms of angina pectoris Office Visit 04/03/2019 2:00p [facility] Lexa Gallardo I20.8 Other forms of Of Molding Machine Operator Helper Jacob Rubalcava angina pectoris E78.00 Pure hypercholesterolemia, unspecified K21.9 Gastro-esophageal reflux disease without esophagitis I25.10 Athscl heart disease of [place] coronary artery w/o ang pctrs Office Visit 03/26/2019 3:00p [facility] Neftali Crump I20.8 Other forms of Of Molding Machine Operator Helper [facility] [place] Gemini, angina pectoris FAC, FSCAI Assessments Date Code Description Provider 09/16/2019 I20.8 Angina pectoris Lexa Rubalcava M.D. 09/16/2019 E78.5 Hyperlipidemia, unspecified Lexa Rubalcava M.D. 09/16/2019 I25.10 Coronary atherosclerosis Lexa Rubalcava M.D. 09/15/2019 M75.52 Bursitis of left shoulder Mike Ambrosio MD 09/15/2019 M25.512 Pain in left shoulder Mike Ambrosio MD 09/15/2019 M25.562 [...] without abnormal findings 06/27/2019 R07.9 Chest pain, nataliaified Jo Castillo M.D. 06/27/2019 R19.7 Diarrhea, unspecified Jo Castillo M.D. 06/27/2019 F43.0 Acute stress reaction Jo Castillo M.D. 06/27/2019 Z23 Encounter for immunization Jo Castillo M.D. 06/02/2019 G43.719 Chronic migraine without aura, Carlos Dickerson N.P. intractable, without status 05/06/2019 E78.00 Pure hypercholesterolemia, Dinah Sharma, N.P. unspecified 05/06/2019 I25.10 Coronary atherosclerosis Dinah Sharma, N.P. [...] forms of angina pectoris Neftali Singletary MD, [facility], [facility] 03/20/2019 I20.8 Other forms of angina pectoris Marek Costa M.D., [facility], [facility] Plan of Treatment Future Appointment(s):10/20/2019 2:15 pm - Mike Ambrosio MD at [facility] at [facility]3701/22/2020 2:15 pm - Reinaldo Meyer M.D. at [facility]09/19/2019 1:45 pm - Addy Lee LCSW at [facility] Internal Medicine - [facility]06/29/2020 3:00 pm - Jo Castillo M.D. at [facility] Internal Medicine - [facility]09/16/2019 - Lexa Rubalcava M.D.I20.8 Angina pectorisFollow up:0v 9mE78.5 Hyperlipidemia, bvwdvagggbiC92.10 Coronary atherosclerosis Functional Status Description No Information Available Mental Status Description No Information Available Referrals Refer to Dr Reason for Referral Status Appt Date Addy Lee LCSW Rod Noel or Julita Barrera, first available Sent [address], [place] [address] [phone] Ann Kaiser M.D. Closed 07/23/2019 [facility] [place] [address] [phone]
--- OUTSIDE RECORDS SUMMARY | 2019-10-28 14:13 | XMS REPORT | Continuity of Care Document ---
:1970 External Reference #:[id number] Author Name Mike Ambrosio MD (transmitted by agent of provider London Garcia) Address [address] [place] [address] Care Team Providers Name Role Phone Daphnie Khan MD - Internal Care Team Information Carpenter Supervisor [employer] [phone] Medicine Regi Gonzalez MD - Family Care Team Information Carpenter Supervisor [employer] Medicine Ann Kaiser M.D. - Single Care Team Information Carpenter Supervisor [employer] [phone] Specialty Addy Lee LCSW - Clinical Care Team Information Carpenter Supervisor [employer] [phone] Problems Active Problems Provider Date Coronary atherosclerosis [...] 11/05/2017 aura Angina pectoris Neftali Singletary MD, [facility], Onset: 03/26/2019 [facility] Social History Type Date Description Comments Sex Unknown Tobacco Use Start: Unknown Never Smoked Cigarettes ETOH Use Currently consumes 1-2 drinks/week alcohol Tobacco Use Start: Unknown Patient has never smoked Recreational Drug Use Denies Drug Use Smoking Status Reviewed: 09/15/19 Patient has never smoked Exercise Type/Frequency Exercises [...] 3-4 weeks, then as needed Montelukast Sodium take 1 tablet 90tabs J30.2 [...] CPT Code Status Date Vaccine Lot # 25528 Given 06/27/2019 Influenza Virus Vaccine, Quadrivalent (Cciiv4), [id number] Derived From Cell 28304 Given 05/30/2018 Influenza Virus Vaccine, Quadrivalent, Split, [id number] Preservative Free 04262 Given 12/18/2014 Measles Mumps And Rubella MMR [id number] 63949 Given 01/30/2013 Tdap - Tetanus/Diptheria/Acellular Pertussis [id number] 05173 Given 06/08/2011 Influenza Virus 3Yrs & Over [id number] Vital Signs Date Vital Result Comment 09/15/2019 3:26pm Height 66.5 inches 5'6.50" Weight 195.00 lb Heart Rate 72 /min BP Systolic 120 mmHg BP Diastolic 72 mmHg Respiratory Rate 12 /min Pain Level 0 increases with movement BMI (Body Mass Index) 31.0 kg/m2 09/15/2019 2:57pm Height 66.5 inches 5'6.50" Results Test Acquired Date Facility Test Result H/L Range Note Lipid Panel - 06/24/2019 [facility] Creatine 65 U/L Normal 10- [address] Kinase(CK) [place] [address] [phone] Comp Metabolic 06/24/2019 [facility] Sodium 137 mmol/L Normal 135-[address] [place] [address] [phone] Potassium 4.5 mmol/L Normal 3.5-5.0 Chloride 103 [...] Egfr 86.8 >60 1 Lipid Profile 06/24/2019 [facility] Triglycerides 167 mg/dL 2 (Trig/Chol/HDL) [address] [place] [address] [phone] Cholesterol 178 mg/dL 3 HDL Cholesterol 42.3 mg/dL 4 LDL Cholesterol 102 mg/dL 5 CBC Auto 03/20/2019 [facility] White Blood 8.1 10^3/uL Normal 3.5-10.8 [address] [place] [address] [phone] Red Blood Count 5.53 10^6/uL High 4.18-5.48 [...] Blood Cells % 0.0 Basic Metabolic 03/20/2019 [facility] Sodium 134 mmol/L Low 135-145 Panel [address] [place] [address] [phone] Chloride 104 mmol/L Normal 101-111 Co2 Carbon Dioxide 22 mmol/L Normal 22-32 Glucose 162 mg/dL High 70-100 Blood Urea Nitrogen 24 mg/dL Normal 6-24 Creatinine 1.02 mg/dL Normal 0.67-1.17 BUN/Creatinine Ratio 23.5 High 8-20 Calcium 10.0 mg/dL Normal 8.6-10.3 Egfr Non- 78.3 >60 Egfr 94.7 >60 7 Potassium 4.7 mmol/L Normal 3.5-5.0 Anion Gap 8 mmol/L Normal 2-11 Inr/Protime 03/20/2019 [facility] Inr 0.94 Normal 0.82-1.[address] [place] [address] [phone] Laboratory test 03/20/2019 [facility] Partial 33.7 Normal 26.0 -38.0 [address] [place] [address] Time PTT [phone] Type & Screen 03/20/2019 [facility] Patient O Positive [address] 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 w/o aura, intractable, w/o stat migr Office Visit 08/27/2019 [facility] Internal Michelle Chau, M75.82 Other shoulder 4:30p Medicine - [facility] FrancoiseD., FACP lesions, left shoulder M22.2x2 Patellofemoral disorders, left knee Office Visit 06/27/2019 3:40p [facility] Internal Jo Z00.00 Encntr for Medicine - Shawna Castillo M.D. general adult medical exam w/o abnormal findings R07.9 Chest pain, unspecified R19.7 Diarrhea, unspecified F43.0 Acute stress reaction Z23 Encounter for immunization Office Visit 06/02/2019 Larry Gonzalez G43.719 Chronic migraine 3:30p Neurologic Tuan, N.P. w/o aura, Services [facility] intractable, w/o stat migr Office Visit 05/06/2019 [place] Dinah Sharma, E78.00 Pure 1:30p Cardiology Of N.P. hypercholesterolem [facility] ia, unspecified I25.10 Athscl heart disease of [place] coronary artery w/o ang pctrs R07.9 Chest pain, unspecified I20.8 Other forms of angina pectoris Office Visit 04/03/2019 2:00p [facility] Lexa Gallardo I20.8 Other forms of Of [facility] Jacob Rubalcava angina pectoris E78.00 Pure hypercholesterolemia, unspecified K21.9 Gastro-esophageal reflux disease without esophagitis I25.10 Athscl heart disease of [place] coronary artery w/o ang pctrs Office Visit 03/26/2019 3:00p [facility] Neftali Crump I20.8 Other forms of Of Mortar Mixer Operator AT [facility] MD Gemini, angina pectoris FAC, [facility] Assessments Date Code Description Provider 09/15/2019 M75.52 Bursitis of left shoulder Mike Ambrosio MD 09/15/2019 M25.512 Pain in left shoulder Mike Ambrosio MD 09/15/2019 M25.562 Pain in left knee Mike Ambrosio MD 09/04/2019 G43.719 Chronic migraine without aura, Carlos Dickerson, N.P. intractable, without status m 08/27/2019 M75.82 [...] without status m 05/06/2019 E78.00 Pure hypercholesterolemia, Dinah Sharma, N.P. [...] forms of angina pectoris Neftali Singletary MD, [facility], [facility] 03/20/2019 I20.8 Other forms of angina pectoris Marek Costa M.D., [facility], [facility] Plan of Treatment Future Appointment(s):10/20/2019 2:15 pm - Mike Ambrosio MD at [facility] at [facility]01/22/2020 2:15 pm - Reinaldo Meyer M.D. at [facility]09/19/2019 1:45 pm - Addy Lee LCSW at [facility] pm - Jo Castillo M.D. at [facility] Internal Medicine - [facility]09/15/2019 - Mike Ambrosio, MDM75.52 Bursitis of left shoulderFollow up:Follow up: 5 zgdxsE80.512 Pain in left lsyxzbtwR43.562 Pain in left knee Functional Status Description No Information Available Mental Status Description No Information Available Referrals Refer to Reason for Referral Status Appt Date Jesus, Addy, CREDIT CARD CONTROL CLERK Addy Jesus or Julita Barrera, first available Sent [address], [place] [address] [phone] Ann Kaiser M.D. Closed 07/23/[address] [place] [address] [phone]
[2019-10-28 15:38] VITALS: BP 117/78
--- NOTE | 2019-10-28 17:18 | UC ---
Skin Complaint HPI - HPI Summary HPI Summary: 48-year-old male comes in with a chief complaint of splinter in his left great toe. Happened couple days ago when he stepped on a piece of wood. He thought he got it all out however he realizes toe continued to hurt and he took a look today he saw that there is still some wood left in there. He's been modifying his walk to take the pressure off it which does decrease the pain. When he steps on it pain is worse. No drainage no fevers or chills feels well otherwise. - History of Current Complaint Chief Complaint: UCLowerExtremity Time Seen by Provider: 10/28/19 16:56 Stated Complaint: FOREIGN BODY IN TOE Pain Intensity: 5 - Allergy/Home Medications Allergies/Adverse Reactions: Allergies Allergy/AdvReac Type Severity Reaction Status Date / Time apple Allergy Airway Verified 10/28/19 15:38 Obstruction clindamycin Allergy Nausea And Verified 10/28/19 15:38 Vomiting Iodinated Contrast Media Allergy Hives Verified 10/28/19 15:38 [Iodinated Contrast- Oral and IV Dye] iohexol Allergy Hives Verified 10/28/19 15:38 lactose Allergy Unknown Verified 10/28/19 15:38 Reaction Details ENVIRONMENTAL Allergy GETTING Uncoded 10/21/19 16:02 ALLERGY INJECTIONS peaches, apricot, cherries Allergy Airway Uncoded 10/21/19 16:02 Obstruction stone fruit Allergy Airway Uncoded 10/21/19 16:02 Obstruction Home Medications: Home Medications Ibuprofen [Advil] 400 - 600 mg PO Q6HR PRN 07/29/12 [History Confirmed 10/28/19] Clobetasol 0.05% OINT* 1 top.gel TOPICAL DAILY PRN 01/03/16 [History Confirmed 10/28/19] Azelastine 0.15% NASAL(NF) [Astepro 0.15% NASAL (NF)] 2 spray BOTH NARES BID PRN 08/01/18 [History Confirmed 10/28/19] Butalb/Acetaminophen/Caffeine [Juddls-Erlxkgut-Aizq 50-300-40] 1 - 2 cap PO Q8H PRN 08/01/18 [History Confirmed 10/28/19] Cetirizine* [ZyrTEC 10 MG TAB*] 10 mg PO DAILY PRN 08/01/18 [History Confirmed 10/28/19] Ketoconazole 2 % CREAM (NF) [Nizoral 2% CREAM (NF)] 1 applic TOPICAL SEE INSTRUCTIONS 08/01/18 [History Confirmed 10/28/19] Magnesium Oxide [Magnesium] 400 mg PO BEDTIME 08/01/18 [History Confirmed ] Montelukast Sodium TAB* [Singulair 10 MG TAB*] 10 mg PO DAILY 08/01/18 [History Confirmed 10/28/19] Shiro-3 Fatty Acids/Fish Oil [Fish Oil 1,000 mg Capsule] 3 tab PO BEDTIME [History Confirmed 10/28/19] Riboflavin (Vitamin B2) [Riboflavin] 4 tab PO DAILY 08/01/18 [History Confirmed 10/28/19] Atorvastatin* [Lipitor 80 MG*] 40 mg PO DAILY 03/19/19 [History Confirmed ] Cholecalciferol (Vitamin D3) [Vitamin D3] 2 cap PO BEDTIME 03/19/19 [History Confirmed 10/28/19] Metoprolol Succinate XL TAB* [Toprol XL TAB*] 25 mg PO BEDTIME 03/19/19 [ History Confirmed 10/28/19] Nitroglycerin TAB 0.4 MG* 0.4 mg SL . NEEDED PRN 03/19/19 [History Confirmed 10/28/19] Fluticasone NASAL SPRAY 50MCG* [Flonase NASAL SPRAY 50MCG*] 2 spray BOTH NARES BID 03/20/19 [History Confirmed 10/28/19] raNITIdine HCl [Zantac] 150 mg PO BEDTIME 03/20/19 [History Confirmed 10/28/19] Amlodipine Besylate [Amlodipine 2.5 mg tab] 2.5 mg PO DAILY 10/28/19 [History Confirmed 10/28/19] Aspirin [Aspirin Childrens 81 MG] 81 mg PO BEDTIME 10/28/19 [History Confirmed 10/28/19] Pantoprazole TAB * [Protonix TAB*] 40 mg PO DAILY 10/28/19 [History Confirmed ] Syringe with Needle, 1 ml [Allergy Syringe] 1 applic SUBCUT WEEKLY 10/28/19 [ History Confirmed 10/28/19] PMH/Surg Hx/FS Hx/Imm Hx Previously Healthy: Yes Endocrine History: Dyslipidemia Cardiovascular History: Cardiac Disease, Hypertension GI/ History: Gastroesophageal Reflux Other History Of: Negative For: Anticoagulant Therapy - Surgical History Surgical History: Yes Surgery Procedure, Year, and Place: TESTICULAR [id number]. VASECTOMY 2002 - Family History Known Family History: Negative: Blood Disorder - Social History Alcohol Use: Weekly Alcohol Amount: 1-2 drinks weekly Substance Use Type: None Smoking Status (MU): Never Smoked Tobacco Review of Systems All Other Systems Reviewed And Are Negative: Yes Constitutional: Positive: Negative Skin: Positive: Other - SEE HPI Eyes: Positive: Negative ENT: Positive: Negative Respiratory: Positive: Negative Cardiovascular: Positive: Negative Gastrointestinal: Positive: Negative Motor: Positive: Negative Neurovascular: Positive: Negative Musculoskeletal: Positive: Negative Neurological/Mental Status: Positive: Negative Psychological: Positive: Negative Is Patient Immunocompromised?: No Physical Exam Triage Information Reviewed: Yes Appearance: Well-Appearing, No Pain Distress, Well-Nourished Vital Signs: Initial Vital Signs Temp 98.2 F 10/28/19 15:33 Pulse 77 10/28/19 15:33 Resp 16 10/28/19 15:33 BP 117/78 10/28/19 15:33 Pulse Ox 99 10/28/19 15:33 Vital Signs Reviewed: Yes Eye Exam: Normal Eyes: Positive: Conjunctiva Clear Neck: Positive: Supple Respiratory: Positive: No respiratory distress Musculoskeletal: Positive: Strength Intact, ROM Intact Neurological: Positive: Alert, Muscle Tone Normal Psychological: Positive: Age Appropriate Behavior Skin: Positive: Other - On the plantar aspect of the great toe there is a 3 mm brown colored foreign body just underneath the skin. I clean the area with alcohol and was able to remove it with splinter forceps. There is no erythema no drainage. At this time it appears that I was able to remove all of the foreign body. Course/Dx - Course Course Of Treatment: Patient will get reevaluated if his symptoms worsen or he does not improve. - Diagnoses Provider Diagnosis: Superficial foreign body, left great toe, initial encounter Discharge ED - Sign-Out/Discharge Documenting (check all that apply): Patient Departure All imaging exams completed and their final reports reviewed: No Studies - Discharge Plan Condition: Stable Disposition: HOME Patient Education Materials: Soft Tissue Foreign Body (ED) Referrals: Jo Castillo MD [Primary Care Provider] - Additional Instructions: FOLLOW UP WITH YOUR DOCTOR IF NOT COMPLETELY IMPROVED. GET REEVALUATED SOONER IF NOT IMPROVED OR WORSE; PAIN, SIGNS OF INFECTION OR ANY QUESTIONS OR CONCERNS. - Billing Disposition and Condition Condition: STABLE Disposition: Home
== END 2019-10-28 17:30 | disposition home or self-care (01) ==
LOC: UCEAST 14:07
DX: S90.452A Superficial foreign body, left great toe, initial encounter (principal); I10 Essential (primary) hypertension; K21.9 Gastro-esophageal reflux disease without esophagitis; E78.5 Hyperlipidemia, unspecified; W45.8XXA Other foreign body or object entering through skin, initial encounter; Y92.9 Unspecified place or not applicable; Z91.018 Allergy to other foods; Z88.1 Allergy status to other antibiotic agents; Z91.041 Radiographic dye allergy status; Z91.011 Allergy to milk products; Z91.09 Other allergy status, other than to drugs and biological substances; Z79.82 Long term (current) use of aspirin; Z79.899 Other long term (current) drug therapy
CPT/HCPCS: 99212; G0463

== ENCOUNTER 2022-06-22 04:56 | Observation (INO) ==
[2022-06-22 05:21] LABS: ABS Eosinophils 0.1 10^3/ul (0-0.6); ABS Lymphocytes 1.4 10^3/ul (1.0-4.8); ABS Monocytes 0.8 10^3/ul (0-0.8); ABS Neutrophils 9.1 10^3/ul (1.5-7.7); Eosinophil % 0.6 %; Hematocrit 45 % (42-52); Hemoglobin 14.8 g/dL (14.0-18.0); Lymphocyte % 11.9 %; Mean Corpuscular HGB Conc 33 g/dL (31-36); Mean Corpuscular Hemoglobin 27 pg (27-31); Mean Corpuscular Volume 83 fL (80-94); Mean Platelet Volume 7.8 fL (7.4-10.4); Platelet Count 315 10^3/uL (150-450); Red Blood Count 5.44 10^6 /uL (4.18-5.48); Red Cell Distribution Width 15 % (10-15); White Blood Count 11.4 10^3/uL (3.5-10.8)
[2022-06-22 05:23] LABS: INR 0.96 (0.89-1.11)
[2022-06-22 05:38] LABS: High Sens Troponin Baseline 4 pg/mL (<20)
[2022-06-22 05:51] LABS: ALT 227 U/L (7-52); AST 212 U/L (13-39); Albumin 4.5 g/dL (3.2-5.2); Albumin/Globulin Ratio 1.5 (1-3); Alkaline Phosphatase 151 U/L (35-149); Anion Gap 4 mmol/L (2-11); Blood Urea Nitrogen 24 mg/dL (6-24); CO2 Carbon Dioxide 31 mmol/L (22-32); Calcium 9.8 mg/dL (8.6-10.3); Chloride 101 mmol/L (101-111); Glucose 169 mg/dL (70-100); Potassium 4.3 mmol/L (3.5-5.0); Sodium 136 mmol/L (135-145); Total Protein 7.5 g/dL (6.4-8.9); eGFR CKD-EPI 65.7 (>60)
[2022-06-22] MEDS ORDERED: Al Hydrox/Mg Hydrox/Simet LIQ 30 ML UDC PO ONE (05:56)
[2022-06-22] MEDS ORDERED: Ondansetron 4 mg VIAL 2 MG/ML 2 ml VIAL IV ONE (06:45)
[2022-06-22] MEDS ORDERED: Famotidine IV 10 MG/ML 2 ml VIAL (20 mg) IV SLOW PU ONE (06:45)
[2022-06-22] MEDS ORDERED: NS 0.9% 1000 ml BAG 1,000 ML IV ONE (06:46)
[2022-06-22 06:47] LABS: Lipase 26 U/L (11.0-82.0)
[2022-06-22 06:52] LABS: High Sensitivity Troponin 1 Hr 4 pg/mL (<20)
[2022-06-22] MEDS ORDERED: Morphine 4 MG/ML VIAL (1 ml) IV ONE ×2 (08:36→14:18)
[2022-06-22 14:39] LABS: ABS Eosinophils 0.1 10^3/ul (0-0.6); ABS Lymphocytes 1.3 10^3/ul (1.0-4.8); ABS Monocytes 0.8 10^3/ul (0-0.8); ABS Neutrophils 5.7 10^3/ul (1.5-7.7); Eosinophil % 0.7 %; Hematocrit 40 % (42-52); Hemoglobin 13.3 g/dL (14.0-18.0); Lymphocyte % 16.6 %; Mean Corpuscular HGB Conc 33 g/dL (31-36); Mean Corpuscular Hemoglobin 27 pg (27-31); Mean Corpuscular Volume 83 fL (80-94); Mean Platelet Volume 7.7 fL (7.4-10.4); Platelet Count 284 10^3/uL (150-450); Red Blood Count 4.83 10^6 /uL (4.18-5.48); Red Cell Distribution Width 15 % (10-15); White Blood Count 7.9 10^3/uL (3.5-10.8)
[2022-06-22 15:30] LABS: Albumin 3.3 g/dL (3.2-5.2); Albumin/Globulin Ratio 1.7 (1-3); Globulin 1.9 g/dL (2-4); Indirect Bilirubin 1.1 mg/dL (0.3-1.0); Total Bilirubin 2.1 mg/dL (0.2-1.0); Total Protein 5.2 g/dL (6.4-8.9)
[2022-06-22] MEDS ORDERED: Morphine 2 MG/ML SYRINGE IV PRN (16:04)
[2022-06-22] MEDS ORDERED: Ondansetron 4 mg VIAL 2 MG/ML 2 ml VIAL IV PRN (17:24)
[2022-06-22] MEDS ORDERED: Fluticasone NASAL SPRAY 50MCG 16 gm SPRAY BTL BOTH NARES PRN (17:32)
[2022-06-22] MEDS ORDERED: Enoxaparin 30 MG/0.3 ML SYR SUBCUT SCH (18:00)
[2022-06-22 18:09] LABS: Acetaminophen < 15 mcg/mL; Alcohol, S < 13 mg/dL (<13)
[2022-06-22 19:09] LABS: Hepatitis B Surface Antigen Nonreactive (Nonreactive)
[2022-06-22 19:24] LABS: Hepatitis A Ab Total Antibody Negative s/c (Negative)
[2022-06-22 19:25] LABS: Hepatitis B Surface Ab Not Immune (Immune)
[2022-06-22 19:26] LABS: Hepatitis C Antibody Negative (Negative)
[2022-06-22] MEDS ORDERED: PTO: RIMEGEPANT SULFATE 75 MG ODT TAB (NF) PO PRN (20:23)
[2022-06-22] MEDS ORDERED: VENLAFAXINE 37.5 MG PO SCH (20:26)
[2022-06-22] MEDS ORDERED: Pantoprazole VIAL 40 MG VIAL IV SCH (21:00)
[2022-06-22] MEDS ORDERED: Cholecalciferol (VIT D3) 1,000 unit TAB PO SCH (21:00)
[2022-06-22] MEDS ORDERED: ESCITALOPRAM 5 MG PO SCH (21:00)
[2022-06-22] MEDS: NF: Azelastine 0.15% NASAL(NF) 30 ML BTL BOTH NARES SCH (21:33)
[2022-06-22] MEDS: VENLAFAXINE 37.5 MG PO SCH ×2 (21:45→21:48)
[2022-06-22] MEDS: Lactated Ringers 1000 ml BAG 1,000 ML IV SCH (21:53)
[2022-06-23] MEDS: Lactated Ringers 1000 ml BAG 1,000 ML IV SCH (04:48)
[2022-06-23 05:48] LABS: ABS Eosinophils 0.1 10^3/ul (0-0.6); ABS Lymphocytes 1.2 10^3/ul (1.0-4.8); ABS Monocytes 0.7 10^3/ul (0-0.8); ABS Neutrophils 4.5 10^3/ul (1.5-7.7); Eosinophil % 1.8 %; Hematocrit 41 % (42-52); Hemoglobin 13.2 g/dL (14.0-18.0); Lymphocyte % 17.8 %; Mean Corpuscular HGB Conc 33 g/dL (31-36); Mean Corpuscular Hemoglobin 27 pg (27-31); Mean Corpuscular Volume 84 fL (80-94); Platelet Count 268 10^3/uL (150-450); Red Blood Count 4.86 10^6 /uL (4.18-5.48); Red Cell Distribution Width 15 % (10-15); White Blood Count 6.5 10^3/uL (3.5-10.8)
[2022-06-23 06:09] LABS: Albumin 3.9 g/dL (3.2-5.2); Albumin/Globulin Ratio 1.7 (1-3); Calcium 9.1 mg/dL (8.6-10.3); Globulin 2.3 g/dL (2-4); Magnesium 2.1 mg/dL (1.9-2.7); Potassium 4.2 mmol/L (3.5-5.0); Total Protein 6.2 g/dL (6.4-8.9); eGFR CKD-EPI 81.8 (>60)
[2022-06-23] MEDS ORDERED: Pantoprazole VIAL 40 MG VIAL IV SCH (09:00)
[2022-06-23 09:10] LABS: Ferritin 497.2 ng/mL (24-336)
[2022-06-23] MEDS: NF: Azelastine 0.15% NASAL(NF) 30 ML BTL BOTH NARES SCH (12:18)
[2022-06-23 14:19] VITALS: BP 116/69
[2022-06-23 14:29] LABS: Albumin 4.1 g/dL (3.2-5.2); Albumin/Globulin Ratio 1.5 (1-3); Direct Bilirubin 0.8 mg/dL (0.03-0.18); Globulin 2.8 g/dL (2-4); Indirect Bilirubin 1.4 mg/dL (0.3-1.0); Total Bilirubin 2.2 mg/dL (0.2-1.0); Total Protein 6.9 g/dL (6.4-8.9)
[2022-06-26 10:58] LABS: Cytomegalovirus IgG Antibody Negative (Negative); EBV Capsid Ag IgG Ab Positive (Negative); EBV Capsid Ag IgM Ab Negative (Negative); Epstein-Barr Nuclear Antigen Positive (Negative)
[2022-06-26 17:50] LABS: Immunoglobulin Subclass IgG4 52.9 mg/dL
[2022-06-27 14:17] LABS: Mitochondria M2 Antibody <0.1 U
== END 2022-06-23 17:35 | disposition home or self-care (01) ==
LOC: EDHOLD 04:56 → ED 04:56 → SUATTDRO 15:55 → EDHOLD 18:05 → MED 18:25
PROVIDERS: ADMIT Internal Medicine; ATTEND Internal Medicine

== ENCOUNTER 2022-06-28 12:48 | Observation (INO) ==
[~2022-06-28 12:48] MED LIST changes: -ACETAMINOPHEN PO PRN; -ASPIRIN 81 MG PO SCH; -Aspirin 81 mg CHEW TAB* 81 MG TAB.CHEW ONE; -Atorvastatin* 80 MG TAB PO SCH; -Azelastine 0.15% NASAL(NF) 30 ML BTL BOTH NARES PRN; -BUTALB PO PRN; +Buffered Lidocaine 1% SYRIN 1 ml INTRADERM ONE; -CAFFEINE PO PRN; -CHOLECALCIFEROL PO SCH; -Cetirizine* 10 MG TAB PO PRN; -Clobetasol 0.05% OINT* 30 GM TUBE TOPICAL PRN; +Dexamethasone IV 4 MG/ML VIAL 1 ml VIAL ONE; -Diazepam TAB(*) 5 MG ONE; -Fluticasone NASAL SPRAY 50MCG* 16 gm SPRAY BTL BOTH NARES SCH; +HYDROcodone/ACETAMIN 5/325 mg TAB PO PRN; -Heparin 2 UNITS/ML IVPREMIX* 3,000 UNIT/1,500 ML BAG IV ONE; -Heparin(*) 1000 UNIT/ML 10 ML VIAL CATH LAB IV ONE; -IBUPROFEN PO PRN; -Iohexol 350 (CONTRAST) 200 ML MDV IV ONE; -Ketoconazole 2 % CREAM (NF) 30 GM TUBE TOPICAL SCH; +Lactated Ringers 1000 ml BAG 1,000 ML IV SCH; -Lidocaine 1% INJ* 10 MG/ML 30 ML SDV ONE; +Lidocaine 2% PF 5 ML VIAL ONE; -MAGNESIUM OXIDE 400 MG PO SCH; +Metoclopramide 5 MG/ML VIAL (10 mg) IV PRN; -Metoprolol Succinate XL TAB* 25 MG PO SCH; +Midazolam 2 mg/2 ml VIAL 1 mg/ml 2 ml VIAL (2 mg) ONE; -Midazolam* 1 MG/ML 5 ML VIAL (5 MG) ONE; -Montelukast Sodium TAB* 10 MG PO SCH; -NS 0.9% 1000 ML** 1,000 ML IV SCH; +Naloxone 0.4 mg VIAL 0.4 mg/ml 1 ml VIAL IV PRN; -Nitroglycerin TAB 0.4 MG* 0.4 MG TAB SL PRN; -OMEGA-3 FATTY ACIDS (NF) 1,000 MG CAP PO SCH; +Ondansetron 4 mg VIAL 2 MG/ML 2 ml VIAL IV PRN; +Ondansetron 4 mg VIAL 2 MG/ML 2 ml VIAL ONE; +Propofol 10 MG/ML 20 ML BTL ONE; -Ranitidine TAB (NF) 150 MG TAB PO SCH; -Riboflavin (B2) (NF) 100 MG TAB PO SCH; -VERAPAMIL 2.5 MG/ML 2 ML VIAL ** 5 mg/2 ml ONE; -[UNRECOGNIZED DRUG - OTHER] PO PRN; -diPHENhydraMINE PO* 25 MG ONE; +fentaNYL 100 mcg/2 ml 50 MCG/ML VIAL ONE; -fentaNYL* 50 MCG/ML 2 ML VIAL (100 MCG VIAL) ONE; -nitroGLYCERIN DRIP* 25,000 MCG/250 ML BTL ONE
[2022-06-28] MEDS ORDERED: ceFAZolin 2 GM PREMIX 2 GM/50 ML BAG ONE (13:03)
[2022-06-28] MEDS ORDERED: Bupivacaine 0.5% SDV PF 30ML VIAL ONE (13:24)
[2022-06-28] MEDS ORDERED: Rocuronium 50 mg VIAL 10 mg/ml 5 ml VIAL (50 mg) ONE (14:22)
[2022-06-28] MEDS ORDERED: Ondansetron 4 mg VIAL 2 MG/ML 2 ml VIAL ONE (15:46)
[2022-06-28] MEDS ORDERED: Sodium Citrate/Citric Acid LIQ 15 ML UDC PO ONE (16:03)
[2022-06-28] MEDS ORDERED: Sodium Citrate/Citric Acid LIQ 15 ML UDC ONE (16:05)
[2022-06-28] MEDS ORDERED: HYDROcodone/ACETAMIN 5/325 mg TAB ONE (16:27)
[2022-06-28] MEDS ORDERED: fentaNYL 100 mcg/2 ml 50 MCG/ML VIAL ONE ×2 (16:27→18:15)
[2022-06-28] MEDS: fentaNYL 100 mcg/2 ml 50 MCG/ML VIAL IV PRN ×6 (16:29→19:06)
[2022-06-28] MEDS ORDERED: Pantoprazole VIAL 40 MG VIAL IV ONE (16:42)
[2022-06-28] MEDS ORDERED: Ondansetron 4 mg VIAL 2 MG/ML 2 ml VIAL IV PRN (18:49)
[2022-06-28] MEDS ORDERED: oxyCODONE/Acetamin 5/325 mg TAB PO PRN (18:49)
[2022-06-28] MEDS ORDERED: Metoclopramide 5 MG/ML VIAL (10 mg) IV PRN (18:59)
[2022-06-28] MEDS ORDERED: Lactated Ringers 1000 ml BAG 1,000 ML IV SCH (19:00)
[2022-06-28] MEDS: HYDROmorphone 1 MG/1 ML SYRINGE IV SLOW PU PRN ×2 (20:10→23:05)
[2022-06-28] MEDS ORDERED: RIMEGEPANT SULFATE 75 MG ODT TAB (NF) PO PRN (23:43)
[2022-06-29 08:05] VITALS: BP 121/69
[2022-06-29] MEDS ORDERED: Enoxaparin 40 MG/0.4 ML SYR SUBCUT SCH (09:00)
== END 2022-06-29 10:44 | disposition home or self-care (01) ==
LOC: OR 12:48 → INTOOBSV 19:45 → SSU 19:45
PROVIDERS: ADMIT Surgery; ATTEND Surgery